=== PATIENT | male | born 1950 | race Caucasian/White ===

== ENCOUNTER 2021-04-04 07:20 | Inpatient (IN) ==
[2021-04-04] MEDS ORDERED: IOPAMIDOL 100 ML BOTTLE IV ONE ×2 (07:21→14:36)
[2021-04-04] MEDS ORDERED: 0.9 % SODIUM CHLORIDE 500 ML IV ONE (07:30)
[2021-04-04] MEDS ORDERED: DEXAMETHASONE 10 MG/ML VIAL IV ONE (07:30)
[2021-04-04] MEDS ORDERED: IPRATROPIUM/ALBUTEROL 3 ML AMPUL.NEB NEB ONE (07:30)
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
[2021-04-04 09:02] LABS: Basophils # (Auto) 0.02 K/mcL (0.00-0.30); Basophils % (Auto) 0.2 % (0.0-2.0); Eosinophils # (Auto) 0.03 K/mcL (0.00-0.70); Eosinophils % (Auto) 0.3 % (0.0-7.0); Lymphocytes # (Auto) 1.01 K/mcL (1.50-4.80); Lymphocytes % (Auto) 11.7 % (15.5-49.0); Mean Cell Volume 87.2 fL (80.0-100.0); Mean Corpuscular HGB Conc 33.3 g/dL (31.0-36.0); Mean Platelet Volume 9.5 fL (7.4-10.4); Monocytes # (Auto) 0.54 K/mcL (0.10-0.90); Monocytes % (Auto) 6.3 % (1.0-12.0); Neutrophils % (Auto) 81.5 % (38.0-78.0); Platelet Count 388 K/mcL (140-440); RBC 5.16 M/mcL (4.63-6.08); Red Cell Distribution Width 13.2 % (11.5-14.5); WBC 8.6 K/mcL (4.5-11.0)
[2021-04-04 09:08] LABS: ALT/SGPT 16 U/L (<40); AST/SGOT 22 U/L (<40); Albumin 3.3 gm/dL (3.2-5.2); Albumin/Globulin Ratio 0.9 (1.0-2.3); Alkaline Phosphatase 80 U/L (39-117); Bilirubin,Total 0.9 mg/dL (0.1-1.0); Blood Urea Nitrogen 13 mg/dL (8-23); Calcium 8.8 mg/dL (8.6-10.4); Carbon Dioxide 22 mmol/L (22-30); Chloride 97 mmol/L (96-108); Globulin 3.7 gm/dL (2.2-3.7); Glomerular Filtration Rate 76; Glucose 142 mg/dL (70-105)
[2021-04-04] MEDS ORDERED: POTASSIUM CHLORIDE 20 MEQ TABLET PO ONE (09:14)
[2021-04-04] MEDS ORDERED: MAGNESIUM OXIDE 400 MG TABLET PO ONE (09:15)
--- NOTE | 2021-04-04 09:43 | XRay Report ---
INDICATION: dyspnea TECHNIQUE: AP portable semiupright chest x-ray COMPARISON: Previous examination dated 04/01/2021 FINDINGS: Lungs:Bilateral pulmonary parenchymal infiltrates. Findings are consistent with covid pneumonia. There has been interval worsening since 04/01/2021 Heart, vascular:No significant cardiomegaly. Pulmonary vascularity is normal. No pulmonary edema or pulmonary congestion Mediastinum, jose david:No mediastinal widening. No hilar mass Pleura:No pleural fluid. No pleural-based mass or calcification Skeletal:Negative. IMPRESSION: 1. Pulmonary parenchymal infiltrates consistent with covid pneumonia 2. Interval worsening since 04/01/2021 Interpreted and Authenticated by: Sharath Lema 04/04/21
--- NOTE | 2021-04-04 10:12 | Cat Scan Report ---
INDICATION: covid, elevated dimer COMPARISON: Previous chest x-rays dated 04/04/2021, 04/01/2021 TECHNIQUE: Axial images obtained through the chest. 60ml Isovue 370 injected intravenously, and scanning was performed during pulmonary arterial phase. Sagittally and coronally reformatted images were obtained. MIP reformatted images. FINDINGS: Lungs:Bilateral predominantly groundglass pulmonary parenchymal infiltrates consistent with covid pneumonia. Mediastinum, vascular:Main pulmonary artery, right pulmonary artery, left pulmonary artery are negative. No intraluminal filling defects. No lobar, segmental, or subsegmental emboli. Thoracic aorta is negative. No aneurysmal dilatation No pathologic mediastinal or hilar adenopathy Heart:No cardiomegaly. No pericardial effusion. There is calcified coronary artery disease with plaque predominantly in the left anterior descending coronary artery No significant reflux of contrast material into the inferior vena cava or hepatic veins Pleura:No significant pleural effusion. No pleural mass or calcification Axilla, supraclavicular regions, chest wall:No pathologic axillary or supraclavicular adenopathy. Musculoskeletal:Negative thoracic spine. No compression fracture. No lytic lesion. No acute rib or sternal lesions. There are nonacute right third through fifth rib fractures Upper Abdomen:There is borderline splenomegaly. There is bilateral adrenal hyperplasia. There are calcified gallstones in the dependent portion of the gallbladder IMPRESSION: 1. Negative pulmonary CTA. No pulmonary embolism 2. Bilateral infiltrates consistent with covid pneumonia 3. Cholelithiasis 4. Borderline splenomegaly 5. Adrenal hyperplasia 6. Nonacute right rib fractures 7. Calcified coronary artery disease The exam was performed using radiation dose optimization techniques including, but not limited to, automated exposure control, adjustment of the mA and/or kV according to patient size and use of iterative reconstruction technique. Interpreted and Authenticated by: Sharath Lema 04/04/21
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
[2021-04-04] MEDS ORDERED: POTASSIUM CHLORIDE 20 MEQ in DEXTROSE 5% IN WATER 250 ML IV PRN (11:00)
[2021-04-04] MEDS ORDERED: DEXTROSE 50% 50 ML VIAL IV PRN (14:36)
[2021-04-04] MEDS ORDERED: IPRATROPIUM/ALBUTEROL 3 ML AMPUL.NEB NEB PRN (14:36)
[2021-04-04] MEDS ORDERED: guaiFENesin/DEXTROMETHORPHAN ORAL SOL PO PRN (14:36)
[2021-04-04] MEDS ORDERED: SENNOSIDES 1 TABLET PO PRN (14:36)
[2021-04-04] MEDS ORDERED: LACTULOSE 20 GM/30 ML ORAL.SOL PO PRN (14:36)
[2021-04-04] MEDS ORDERED: DEXTROSE 31 GM ORAL.SUSP PO PRN (14:36)
[2021-04-04] MEDS ORDERED: REMDESIVIR 200 MG in 0.9 % SODIUM CHLORIDE 250 ML IV ONE (15:00)
[2021-04-04] MEDS: INSULIN LISPRO 1 UNIT/0.01 ML UNIT SQ SCH ×3 (15:39→20:58)
[2021-04-04] MEDS: 0.9 % SODIUM CHLORIDE 10 ML SYRINGE IV SCH (15:41)
[2021-04-04] MEDS: GABAPENTIN 100 MG CAPSULE PO SCH ×2 (15:44→20:51)
[2021-04-04 15:59] LABS: INR 0.9 (0.9-1.1); Prothrombin Time 12.8 sec (11.9-14.5)
[2021-04-04 16:00] LABS: ALT/SGPT 17 U/L (<40); AST/SGOT 23 U/L (<40); Albumin 3.4 gm/dL (3.2-5.2); Albumin/Globulin Ratio 0.9 (1.0-2.3); Alkaline Phosphatase 81 U/L (39-117); Bilirubin,Total 0.7 mg/dL (0.1-1.0); Blood Urea Nitrogen 13 mg/dL (8-23); Carbon Dioxide 19 mmol/L (22-30); Chloride 97 mmol/L (96-108); Globulin 3.6 gm/dL (2.2-3.7); Glomerular Filtration Rate 76; Glucose 142 mg/dL (70-105); Lactate Dehydrogenase 295 U/L (135-225)
[2021-04-04 16:26] LABS: Estimated Average Glucose(eAG) 183 mg/dL
[2021-04-04] MEDS: ACETAMINOPHEN 325 MG TABLET PO PRN (20:49)
[2021-04-04] MEDS: DOCUSATE SODIUM 100 MG CAPSULE PO SCH (20:51)
[2021-04-04] MEDS ORDERED: INSULIN GLARGINE, HUMAN 1 UNIT/0.01 ML SQ ONE ×2 (21:00→21:01)
[2021-04-04] MEDS: ENOXAPARIN 40 MG/0.4 ML SYRINGE SQ SCH (21:04)
[2021-04-04] MEDS: INSULIN DEGLUDEC 100 UNIT/ML SC SCH (21:05)
[2021-04-04] MEDS: Budesonide-Formoterol [Symbicort] 160-4.5 mcg Inhaler INH SCH (21:05)
[2021-04-04] MEDS: OMEPRAZOLE 20 MG CAPSULE PO SCH (21:05)
[2021-04-04] MEDS: INSULIN SC SCH (21:05)
[2021-04-05] MEDS: 0.9 % SODIUM CHLORIDE 10 ML SYRINGE IV SCH ×3 (03:37→14:07)
[2021-04-05 06:58] LABS: Basophils # (Auto) 0.01 K/mcL (0.00-0.30); Basophils % (Auto) 0.2 % (0.0-2.0); Eosinophils # (Auto) 0.01 K/mcL (0.00-0.70); Eosinophils % (Auto) 0.2 % (0.0-7.0); Hematocrit 42.1 % (40.1-51.0); Hemoglobin 13.9 g/dL (13.7-17.5); Lymphocytes # (Auto) 0.93 K/mcL (1.50-4.80); Mean Cell Volume 88.1 fL (80.0-100.0); Mean Platelet Volume 10.3 fL (7.4-10.4); Monocytes # (Auto) 0.58 K/mcL (0.10-0.90); Monocytes % (Auto) 8.7 % (1.0-12.0); Neutrophils % (Auto) 76.9 % (38.0-78.0); Platelet Count 331 K/mcL (140-440); RBC 4.78 M/mcL (4.63-6.08); WBC 6.6 K/mcL (4.5-11.0)
[2021-04-05] MEDS: INSULIN LISPRO 1 UNIT/0.01 ML UNIT SQ SCH ×4 (06:59→21:24)
[2021-04-05] MEDS: ONDANSETRON 4 MG/2 ML VIAL IV PRN (06:59)
[2021-04-05 07:30] LABS: Phosphorous 2.4 mg/dL (2.5-4.5)
[2021-04-05 07:35] LABS: ALT/SGPT 12 U/L (<40); AST/SGOT 17 U/L (<40); Albumin 2.7 gm/dL (3.2-5.2); Albumin/Globulin Ratio 0.8 (1.0-2.3); Alkaline Phosphatase 65 U/L (39-117); Bilirubin,Total 0.8 mg/dL (0.1-1.0); Blood Urea Nitrogen 15 mg/dL (8-23); Calcium 8.7 mg/dL (8.6-10.4); Carbon Dioxide 21 mmol/L (22-30); Chloride 102 mmol/L (96-108); Globulin 3.5 gm/dL (2.2-3.7); Glomerular Filtration Rate 91; Glucose 127 mg/dL (70-105)
[2021-04-05] MEDS: OMEPRAZOLE 20 MG CAPSULE PO SCH ×2 (07:58→21:13)
[2021-04-05] MEDS: DOCUSATE SODIUM 100 MG CAPSULE PO SCH ×2 (07:58→21:13)
[2021-04-05] MEDS: GABAPENTIN 100 MG CAPSULE PO SCH ×3 (07:58→21:13)
[2021-04-05] MEDS: ENOXAPARIN 40 MG/0.4 ML SYRINGE SQ SCH ×2 (07:58→21:12)
[2021-04-05] MEDS: DEXAMETHASONE 4 MG TABLET PO SCH (07:58)
[2021-04-05] MEDS: LISINOPRIL 20 MG TABLET PO SCH (07:58)
[2021-04-05] MEDS: HYDROCHLOROTHIAZIDE 12.5 MG CAPSULE PO SCH (07:58)
--- NOTE | 2021-04-05 08:23 | XRay Report ---
INDICATION: covid pneumonia TECHNIQUE: AP portable upright chest x-ray COMPARISON: Previous chest CT scan dated 04/04/2021. Previous chest x-rays dated 04/04/2021, 04/01/2021. FINDINGS: Lungs:There are bilateral pulmonary parenchymal infiltrates. Appearance remains consistent with covid pneumonia. Infiltrates are improved since 04/04/2021. No new abnormality. Heart, vascular:No significant cardiomegaly. Pulmonary vascularity is normal. No pulmonary edema or pulmonary congestion Mediastinum, jose david:No mediastinal widening. No hilar mass Pleura:No pleural fluid. No pleural-based mass or calcification Skeletal:Negative. IMPRESSION: 1. Bilateral infiltrates remain consistent with covid pneumonia 2. Interval improvement since 04/04/2021 Interpreted and Authenticated by: Sharath Lema 04/05/21
[2021-04-05] MEDS ORDERED: LISINOPRIL/HCTZ 10/12.5MG TABLET PO SCH (09:00)
[2021-04-05] MEDS ORDERED: LISINOPRIL/HCTZ 20/12.5MG TABLET PO SCH (09:00)
--- NOTE | 2021-04-05 09:19 | Internal Med Progress Note ---
SUBJECTIVE Subjective Patient information: Note initiated : 04/05/21 at 9:15 am Service Date, if different from initiated Date: [] Patient: Rayray Dominguez a 70 y/o M admitted on 04/04/21 for COVID, SOB. Chief Complaint: [CoVID pneumonia] Interval history: History of present illness: Mr. Dominguez is a 70 year old M history of COPD, type 2 diabetes mellitus, essential hypertension's, presenting with 11-day history of shortness of breath, productive cough, fever and chills, general body weakness, general body aches. He is vaccinated against Covid pneum onia with the [employer]eb [employer] Jeb vaccine. He was in his usual state of health until 11 days ago when he had acute onset of shortness of breath, productive cough, fever and chills, general body weakness, and general body aches. He presented to our ED on April 01, 2021 and was being discharged home with dexamethasone but without oxygen therapy. He returned to our ED today due to worsening of his symptoms. His oxygen saturations were was down to the 60s on room air with rest of the vital signs within normal limits. Labs significant for lack of leukocytosis with WBC 8.6. D-dimer mildly elevated to 0.89. Serum lactic acid 1.4. Serum potassium 3.2. Procalcitonin mildly elevated to 0.31. Chest x-ray showing bilateral patchy infiltrates typical for Covid pneumonia. CT angiogram of the chest negative for any pulmonary embolism. 04/05: Afebrile overnight. Did not tolerate proning. Between BiPAP 12/8cmH2O FiO2 50% and high flow oxygen 60L/min FiO2 100%. Blood culture no growth to date. c/o SOB, improves relative to yesterday. c/o productive cough with clear sputum. c/o chest tightness. c/o fever and chills. Denies anxiety. So-so appetite. Denies general body weakness. Constitutional Vitals: Vital Signs Temp Pulse Resp BP Pulse Ox 36.4 C 66 25 H 130/75 99 04/05/21 08:01 04/05/21 08:01 04/05/21 08:01 04/05/21 08:01 04/05/21 08:01 Period Temp Pulse Resp BP Sys/Amin Pulse Ox Last 24 Hr 36.4 C-36.5 C 61-95 8-27 99-144/57-93 82-100 Intake and Output 04/04/21 04/05/21 04/05/21 21:59 05:59 13:59 Intake Total 450 Output Total 150 350 Balance 300 -350 Weight 99.79 kg Intake & Output: Intake & Output 04/04/21 04/05/21 04/05/21 21:59 05:59 13:59 Intake Total 450 Output Total 150 350 Balance 300 -350 Weight 99.79 kg Intake: IV 250 Veklury 200 mg In Sodium 250 Chloride 0.9% 250 ml @ 500 mls/ hr IV ONCE ONE Rx#:[id number] Oral 200 Output: Urine Catheter Amount 150 Void Amount 150 200 Other: Meal Dinner Percent of Meal Consumed 100% Feeding Ability Independent Urine Appearance Sediment Urine Color Dark Margarita Dark Margarita Urine Odor Foul General appearance: cooperative and no acute distress Head Head exam: Present atraumatic and normocephalic Eye Eye exam: Present EOMI and PERRL ENT ENT exam: Present mucous membranes moist, normal exam and normal external ear exam Additional comments: High flow oxygen in place Neck Neck exam: Present normal inspection; Absent lymphadenopathy, tenderness and thyromegaly Respiratory Respiratory exam: Present rhonchi; Absent accessory muscle use, respiratory distress and wheezes Cardiovascular Cardiovascular exam: Present normal rate and rhythm; Absent JVD GI/Abdominal GI/Abdominal exam: Present normal bowel sounds and soft; Absent organomegaly and tenderness Rectal Rectal exam: Present deferred Extremities Exam Extremities exam: Present full ROM, normal capillary refill and normal inspection; Absent tenderness Neurological Exam Neurological exam: Present alert, CN II-XII intact and oriented X3; Absent motor sensory deficit Psychiatric Psychiatric exam: Present normal affect and normal mood; Absent anxious and depressed Skin Skin exam: Present dry and intact OBJ DATA Labs CBC & Chem 7: 04/05/21 05:32 04/05/21 05:31 Labs: Abnormal Lab Results 04/05/21 04/05/21 04/05/21 05:32 05:32 05:31 Neut % (Auto) Lymph % (Auto) 14.0 L Lymph # (Auto) 0.93 L Fibrinogen D-Dimer Potassium Carbon Dioxide 21 L Anion Gap Glucose 127 H Hemoglobin A1c Phosphorus 2.4 L Ferritin Lactate Dehydrogenase C-Reactive Protein Albumin 2.7 L Albumin/Globulin Ratio 0.8 L Procalcitonin 04/04/21 04/04/21 04/04/21 07:53 07:53 07:53 Neut % (Auto) Lymph % (Auto) Lymph # (Auto) Fibrinogen 827 H D-Dimer Potassium 3.2 L Carbon Dioxide 19 L Anion Gap 21.0 H Glucose 142 H Hemoglobin A1c 8.0 H Phosphorus Ferritin 463.0 H Lactate Dehydrogenase 295 H C-Reactive Protein 14.80 H Albumin Albumin/Globulin Ratio 0.9 L Procalcitonin 0.31 H 04/04/21 04/04/21 04/04/21 07:53 07:53 07:53 Neut % (Auto) 81.5 H Lymph % (Auto) 11.7 L Lymph # (Auto) 1.01 L Fibrinogen D-Dimer 0.89 H Potassium 3.2 L Carbon Dioxide Anion Gap 17.0 H Glucose 142 H Hemoglobin A1c Phosphorus Ferritin Lactate Dehydrogenase C-Reactive Protein Albumin Albumin/Globulin Ratio 0.9 L Procalcitonin Meds: Medications Acetaminophen (Acetaminophen 325 Mg Tablet) 650 mg PO Q6HP PRN; Protocol PRN Reason: Per Pain Protocol/Fever > 101 Last Admin: 04/04/21 20:49 Dose: 650 mg Documented by: Albuterol/Ipratropium (Ipratropium/Albuterol 3 Ml Ampul.Neb) 3 ml NEB Q4HRT PRN PRN Reason: Wheezing Dexamethasone (Dexamethasone 4 Mg Tablet) 6 mg PO DAILY [facility] Last Admin: 04/05/21 07:58 Dose: 6 mg Documented by: Dextrose (Dextrose 50% 50 Ml Vial) 0 ml IV UD PRN PRN Reason: Hypoglycemia Diagnostic Test (Pha) (Accu-Chek 1 Each Strip) 1 each FS ACHS [facility] Last Admin: 04/05/21 06:59 Dose: 1 each Documented by: Docusate Sodium (Docusate Sodium 100 Mg Capsule) 100 mg PO BID [facility] Last Admin: 04/05/21 07:58 Dose: 100 mg Documented by: Enoxaparin Sodium (Enoxaparin 40 Mg/0.4 Ml Syringe) 40 mg SQ BID [facility] Last Admin: 04/05/21 07:58 Dose: 40 mg Documented by: Gabapentin (Gabapentin 100 Mg Capsule) 100 mg PO TID [facility] Last Admin: 04/05/21 07:58 Dose: 100 mg Documented by: Glucose (Dextrose 31 Gm Oral.Susp) 15 gm PO PRN PRN PRN Reason: Hypoglycemia Guaifenesin (Guaifenesin/Dextromethorphan Oral Rosa) 10 ml PO Q4HP PRN PRN Reason: Cough Hydrochlorothiazide (Hydrochlorothiazide 12.5 Mg Capsule) 12.5 mg PO DAILY [facility] Last Admin: 04/05/21 07:58 Dose: 12.5 mg Documented by: Potassium Chloride 20 meq/ (Dextrose) 260 mls @ 130 mls/hr IV UD PRN PRN Reason: hypokalemia REMDESIVIR 100 mg/ Sodium (Chloride) 250 mls @ 500 mls/hr IV Q24H [facility] Stop: 04/08/21 11:01 Insulin Human Lispro (Insulin Lispro 1 Unit/0.01 Ml Unit) 0 unit SQ ACHS [facility]; Protocol Last Admin: 04/05/21 06:59 Dose: Not Given Documented by: Lactulose (Lactulose 20 Gm/30 Ml Oral.Rosa) 10 gm PO DAILYP PRN PRN Reason: Constipation Lisinopril (Lisinopril 20 Mg Tablet) 20 mg PO DAILY [facility] Last Admin: 04/05/21 07:58 Dose: 20 mg Documented by: Omeprazole (Omeprazole 20 Mg Capsule) 20 mg PO BID [facility] Last Admin: 04/05/21 07:58 Dose: 20 mg Documented by: Ondansetron HCl (Ondansetron 4 Mg/2 Ml Vial) 4 mg IV Q4HP PRN; Protocol PRN Reason: Nausea And Vomiting Last Admin: 04/05/21 06:59 Dose: 4 mg Documented by: Budesonide- Formoterol [ Symbicort] 160-4.5 Mcg Inhaler 2 dose INH BID [facility] Last Admin: 04/04/21 21:05 Dose: Not Given Documented by: Fluticasone- Umeclidin-Vilanter [ Trelegy Ellipta] Inhaler 1 dose INH QDAY [facility] Insulin Degludec 100 (Unit/Ml Insulin Pen) 50 dose SC HS [facility] Last Admin: 04/04/21 21:05 Dose: Not Given Documented by: Umeclidinium- Vilanterol [Anoro Ellipta] 62.5-25 Mcg Inhaler 1 dose INH DAILY [facility] Pneumococcal Polyvalent Vaccine (Pneumococcal 23-Xiomy P-Sac Vac 0.5 Ml Syringe) 0.5 ml IM .ONCE ONE Stop: 04/06/21 10:01 Senna (Sennosides 1 Tablet) 2 tab PO HSP PRN PRN Reason: Constipation Sodium Chloride (0.9 % Sodium Chloride 10 Ml Syringe) 10 ml IV Q8 [facility] Last Admin: 04/05/21 06:05 Dose: 10 ml Documented by: A/P Assessment and plan (1) Pneumonia due to 2019 novel coronavirus: Status: Acute (2) Acute hypoxemic respiratory failure due to COVID-19: Status: Acute (3) Diabetes mellitus, type II: Status: Chronic Qualifiers: Diabetes mellitus complication status: with unspecified complications Diabetes mellitus shelter insulin use: 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 Covid pneumonia with associated acute respiratory failure with hypoxia: Stays in inpatient PCU with telemetry Isolation protocol: Airborne and contact Supplemental oxygen therapy titrate to achieve SPO2 above or equal to 88%, currently between BiPAP 12/8cmH2O FiO2 50% and high flow oxygen 60L/min FiO2 100% Serial lactic acid Inflammatory markers Blood culture, no growth to date CBC with auto differential in the morning to trend WBC Remdesivir Dexamethasone Lovenox Tylenol as needed fever Robitussin DM as needed cough DuoNeb nebulizer as needed wheezing Prone 16 hours/day as tolerated Incentive spirometry Chest x-ray daily #2 history of COPD: Does not appear to be in exacerbation Continue home regiment of inhalers DuoNeb nebulizer as needed wheezing Supplemental oxygen therapy titrate to achieve SPO2 above or equal to 88%, currently between BiPAP 12/8cmH2O FiO2 50% and high flow oxygen 60L/min FiO2 100% #3 type 2 diabetes mellitus: Hemoglobin A1c Home Metformin Continue long-acting insulin 50 units at bedtime as per home regiment Low-dose correctional scale insulin AC at bedtime Accu-Chek AC at bedtime Hypoglycemia protocol Diabetic diet 4. History of essential hypertension's: Currently normotensive Continue home regimen of oral antihypertensives 5. Morbid obesity: Counseled patient on lifestyle modifications including regular exercise and healthy diet in order to lose weight 6. History of GERD: Continue oral PPI from home regiment GI prophylaxis: Continue oral PPI from home regiment DVT prophylaxis: Lovenox CODE STATUS: Full code Prognosis: Guarded Dispositions: Inpatient PCU with telemetry Time Spent With Patient Time: Total time spent is greater than 50% in coordination of care (as documented) at patient's floor/unit and/or counseling patient: QUALITY VTE Deep Vein Thrombosis/Pulmonary Embolism Present on Admission: No
[2021-04-05] MEDS: Budesonide-Formoterol [Symbicort] 160-4.5 mcg Inhaler INH SCH ×2 (09:37→21:28)
[2021-04-05] MEDS: Umeclidinium-Vilanterol [Anoro Ellipta] 62.5-25 mcg Inhaler INH SCH (09:37)
[2021-04-05] MEDS: Fluticasone-Umeclidin-Vilanter [Trelegy Ellipta] Inhaler INH SCH (10:24)
[2021-04-05] MEDS: REMDESIVIR 100 MG in 0.9 % SODIUM CHLORIDE 250 ML IV SCH (10:24)
[2021-04-05] MEDS: INSULIN DEGLUDEC 100 UNIT/ML SC SCH (21:12)
[2021-04-05] MEDS: INSULIN SC SCH (21:12)
[2021-04-06] MEDS: 0.9 % SODIUM CHLORIDE 10 ML SYRINGE IV SCH ×4 (00:05→21:32)
[2021-04-06] MEDS: ACETAMINOPHEN 325 MG TABLET PO PRN (00:09)
[2021-04-06 07:28] LABS: Basophils # (Auto) 0.01 K/mcL (0.00-0.30); Basophils % (Auto) 0.1 % (0.0-2.0); Eosinophils # (Auto) 0.05 K/mcL (0.00-0.70); Eosinophils % (Auto) 0.6 % (0.0-7.0); Hematocrit 41.5 % (40.1-51.0); Hemoglobin 13.9 g/dL (13.7-17.5); Lymphocytes # (Auto) 1.03 K/mcL (1.50-4.80); Lymphocytes % (Auto) 12.6 % (15.5-49.0); Mean Cell Volume 88.9 fL (80.0-100.0); Mean Corpuscular HGB Conc 33.5 g/dL (31.0-36.0); Mean Platelet Volume 9.2 fL (7.4-10.4); Monocytes # (Auto) 0.58 K/mcL (0.10-0.90); Monocytes % (Auto) 7.1 % (1.0-12.0); Neutrophils % (Auto) 79.6 % (38.0-78.0); Platelet Count 409 K/mcL (140-440); RBC 4.67 M/mcL (4.63-6.08); WBC 8.2 K/mcL (4.5-11.0)
[2021-04-06] MEDS: INSULIN LISPRO 1 UNIT/0.01 ML UNIT SQ SCH ×4 (07:29→21:25)
[2021-04-06 07:46] LABS: Phosphorous 3.3 mg/dL (2.5-4.5)
[2021-04-06 07:48] LABS: ALT/SGPT 12 U/L (<40); AST/SGOT 14 U/L (<40); Albumin 2.6 gm/dL (3.2-5.2); Albumin/Globulin Ratio 0.8 (1.0-2.3); Alkaline Phosphatase 63 U/L (39-117); Bilirubin,Total 0.7 mg/dL (0.1-1.0); Blood Urea Nitrogen 19 mg/dL (8-23); Calcium 8.8 mg/dL (8.6-10.4); Carbon Dioxide 23 mmol/L (22-30); Chloride 103 mmol/L (96-108); Globulin 3.4 gm/dL (2.2-3.7); Glomerular Filtration Rate 91; Glucose 110 mg/dL (70-105)
[2021-04-06] MEDS: Budesonide-Formoterol [Symbicort] 160-4.5 mcg Inhaler INH SCH ×2 (07:53→21:33)
[2021-04-06] MEDS: Umeclidinium-Vilanterol [Anoro Ellipta] 62.5-25 mcg Inhaler INH SCH (07:53)
--- NOTE | 2021-04-06 07:54 | XRay Report ---
HISTORY: Follow-up COVID pneumonia FINDINGS: A patchy distribution of alveolar infiltrates are present in both lungs. The infiltrate in the central portion of the left lung has somewhat of a streaky distribution. These have remained stable since the prior exam done on 05/06/21. There is no pneumothorax or pleural effusion. The heart size is normal. IMPRESSION: Stable moderate bilateral pneumonia Interpreted and Authenticated by: Willie Bowden 04/06/21
[2021-04-06] MEDS: ENOXAPARIN 40 MG/0.4 ML SYRINGE SQ SCH ×2 (08:24→21:11)
[2021-04-06] MEDS: ONDANSETRON 4 MG/2 ML VIAL IV PRN (08:24)
[2021-04-06] MEDS: LISINOPRIL 20 MG TABLET PO SCH (08:25)
[2021-04-06] MEDS: OMEPRAZOLE 20 MG CAPSULE PO SCH ×2 (08:25→21:13)
[2021-04-06] MEDS: DOCUSATE SODIUM 100 MG CAPSULE PO SCH ×2 (08:25→21:12)
[2021-04-06] MEDS: DEXAMETHASONE 4 MG TABLET PO SCH (08:25)
[2021-04-06] MEDS: Fluticasone-Umeclidin-Vilanter [Trelegy Ellipta] Inhaler INH SCH (08:25)
[2021-04-06] MEDS: HYDROCHLOROTHIAZIDE 12.5 MG CAPSULE PO SCH (08:25)
[2021-04-06] MEDS: GABAPENTIN 100 MG CAPSULE PO SCH ×3 (08:25→21:12)
--- NOTE | 2021-04-06 08:27 | Internal Med Progress Note ---
SUBJECTIVE Subjective Patient information: Note initiated : 04/06/21 at 8:24 am Service Date, if different from initiated Date: [] Patient: Rayray Dominguez a 70 y/o M admitted on 04/04/21 for COVID, SOB. Chief Complaint: [CoVID pneumonia] Interval history: History of present illness: Mr. Dominguez is a 70 year old M history of COPD, type 2 diabetes mellitus, essential hypertension's, presenting with 11-day history of shortness of breath, productive cough, fever and chills, general body weakness, general body aches. He is vaccinated against Covid pneum onia with the [employer]eb [employer] Jeb vaccine. He was in his usual state of health until 11 days ago when he had acute onset of shortness of breath, productive cough, fever and chills, general body weakness, and general body aches. He presented to our ED on April 01, 2021 and was being discharged home with dexamethasone but without oxygen therapy. He returned to our ED today due to worsening of his symptoms. His oxygen saturations were was down to the 60s on room air with rest of the vital signs within normal limits. Labs significant for lack of leukocytosis with WBC 8.6. D-dimer mildly elevated to 0.89. Serum lactic acid 1.4. Serum potassium 3.2. Procalcitonin mildly elevated to 0.31. Chest x-ray showing bilateral patchy infiltrates typical for Covid pneumonia. CT angiogram of the chest negative for any pulmonary embolism. 04/05: Afebrile overnight. Did not tolerate proning. Between BiPAP 12/8cmH2O FiO2 50% and high flow oxygen 60L/min FiO2 100%. Blood culture no growth to date. c/o SOB, improves relative to yesterday. c/o productive cough with clear sputum. c/o chest tightness. c/o fever and chills. Denies anxiety. So-so appetite. Denies general body weakness. 04/06: Afebrile overnight. Did not tolerate proning. Between on high flow oxygen 55L/min FiO2 90%. Blood culture no growth to date. c/o SOB, improves relative to yesterday. c/o productive cough with clear sputum. c/o chest tightness. Denies fever and chills. Denies anxiety. Good appetite. Denies general body weakness. Constitutional Vitals: Vital Signs Temp Pulse Resp BP Pulse Ox 36.8 C 75 19 123/77 90 04/06/21 00:01 04/06/21 06:00 04/06/21 06:00 04/06/21 05:59 04/06/21 07:17 Period Temp Pulse Resp BP Sys/Amin Pulse Ox Last 24 Hr 36.1 C-36.8 C 57-92 12-26 105-127/53-87 90-99 Intake and Output 04/05/21 04/06/21 04/06/21 21:59 05:59 13:59 Output Total 650 Balance -650 Weight 98.611 kg Intake & Output: Intake & Output 04/05/21 04/06/21 04/06/21 21:59 05:59 13:59 Output Total 650 Balance -650 Weight 98.611 kg Output: Void Amount 650 Other: Meal Dinner Percent of Meal Consumed 100% Feeding Ability Independent Urine Appearance Clear Urine Color Light Margarita Urine Odor Normal General appearance: cooperative and no acute distress Head Head exam: Present atraumatic and normocephalic Eye Eye exam: Present EOMI and PERRL ENT ENT exam: Present mucous membranes moist, normal exam and normal external ear exam Additional comments: High flow oxygen in place Neck Neck exam: Present normal inspection; Absent lymphadenopathy, tenderness and thyromegaly Respiratory Respiratory exam: Absent accessory muscle use, respiratory distress and wheezes Cardiovascular Cardiovascular exam: Present normal rate and rhythm; Absent JVD GI/Abdominal GI/Abdominal exam: Present normal bowel sounds and soft; Absent organomegaly and tenderness Rectal Rectal exam: Present deferred Extremities Exam Extremities exam: Present full ROM, normal capillary refill and normal inspection; Absent tenderness Neurological Exam Neurological exam: Present alert, CN II-XII intact and oriented X3; Absent motor sensory deficit Psychiatric Psychiatric exam: Present normal affect and normal mood; Absent anxious and depressed Skin Skin exam: Present dry and intact OBJ DATA Labs CBC & Chem 7: 04/06/21 05:51 04/06/21 05:50 Labs: Abnormal Lab Results 04/06/21 04/06/21 04/05/21 05:51 05:50 05:32 Neut % (Auto) 79.6 H Lymph % (Auto) 12.6 L Lymph # (Auto) 1.03 L Fibrinogen D-Dimer Potassium Carbon Dioxide Anion Gap Glucose 110 H Hemoglobin A1c Phosphorus 2.4 L Ferritin Lactate Dehydrogenase C-Reactive Protein Albumin 2.6 L Albumin/Globulin Ratio 0.8 L Procalcitonin 04/05/21 04/05/21 04/04/21 05:32 05:31 07:53 Neut % (Auto) Lymph % (Auto) 14.0 L Lymph # (Auto) 0.93 L Fibrinogen D-Dimer Potassium 3.2 L Carbon Dioxide 21 L 19 L Anion Gap 21.0 H Glucose 127 H 142 H Hemoglobin A1c 8.0 H Phosphorus Ferritin 463.0 H Lactate Dehydrogenase 295 H C-Reactive Protein 14.80 H Albumin 2.7 L Albumin/Globulin Ratio 0.8 L 0.9 L Procalcitonin 04/04/21 04/04/21 04/04/21 07:53 07:53 07:53 Neut % (Auto) Lymph % (Auto) Lymph # (Auto) Fibrinogen 827 H D-Dimer Potassium 3.2 L Carbon Dioxide Anion Gap 17.0 H Glucose 142 H Hemoglobin A1c Phosphorus Ferritin Lactate Dehydrogenase C-Reactive Protein Albumin Albumin/Globulin Ratio 0.9 L Procalcitonin 0.31 H 04/04/21 04/04/21 07:53 07:53 Neut % (Auto) 81.5 H Lymph % (Auto) 11.7 L Lymph # (Auto) 1.01 L Fibrinogen D-Dimer 0.89 H Potassium Carbon Dioxide Anion Gap Glucose Hemoglobin A1c Phosphorus Ferritin Lactate Dehydrogenase C-Reactive Protein Albumin Albumin/Globulin Ratio Procalcitonin Meds: Medications Acetaminophen (Acetaminophen 325 Mg Tablet) 650 mg PO Q6HP PRN; Protocol PRN Reason: Per Pain Protocol/Fever > 101 Last Admin: 04/06/21 00:09 Dose: 650 mg Documented by: Albuterol/Ipratropium (Ipratropium/Albuterol 3 Ml Ampul.Neb) 3 ml NEB Q4HRT PRN PRN Reason: Wheezing Dexamethasone (Dexamethasone 4 Mg Tablet) 6 mg PO DAILY [facility] Last Admin: 04/05/21 07:58 Dose: 6 mg Documented by: Dextrose (Dextrose 50% 50 Ml Vial) 0 ml IV UD PRN PRN Reason: Hypoglycemia Diagnostic Test (Pha) (Accu-Chek 1 Each Strip) 1 each FS ACHS [facility] Last Admin: 04/06/21 07:29 Dose: 1 each Documented by: Docusate Sodium (Docusate Sodium 100 Mg Capsule) 100 mg PO BID [facility] Last Admin: 04/05/21 21:13 Dose: 100 mg Documented by: Enoxaparin Sodium (Enoxaparin 40 Mg/0.4 Ml Syringe) 40 mg SQ BID [facility] Last Admin: 04/05/21 21:12 Dose: 40 mg Documented by: Gabapentin (Gabapentin 100 Mg Capsule) 100 mg PO TID [facility] Last Admin: 04/05/21 21:13 Dose: 100 mg Documented by: Glucose (Dextrose 31 Gm Oral.Susp) 15 gm PO PRN PRN PRN Reason: Hypoglycemia Guaifenesin (Guaifenesin/Dextromethorphan Oral Rosa) 10 ml PO Q4HP PRN PRN Reason: Cough Hydrochlorothiazide (Hydrochlorothiazide 12.5 Mg Capsule) 12.5 mg PO DAILY [facility] Last Admin: 04/05/21 07:58 Dose: 12.5 mg Documented by: Potassium Chloride 20 meq/ (Dextrose) 260 mls @ 130 mls/hr IV UD PRN PRN Reason: hypokalemia REMDESIVIR 100 mg/ Sodium (Chloride) 250 mls @ 500 mls/hr IV Q24H [facility] Stop: 04/08/21 11:01 Last Infusion: 04/05/21 10:57 Dose: Infused Documented by: Insulin Human Lispro (Insulin Lispro 1 Unit/0.01 Ml Unit) 0 unit SQ ACHS [facility]; Protocol Last Admin: 04/06/21 07:29 Dose: Not Given Documented by: Lactulose (Lactulose 20 Gm/30 Ml Oral.Rosa) 10 gm PO DAILYP PRN PRN Reason: Constipation Lisinopril (Lisinopril 20 Mg Tablet) 20 mg PO DAILY [facility] Last Admin: 04/05/21 07:58 Dose: 20 mg Documented by: Omeprazole (Omeprazole 20 Mg Capsule) 20 mg PO BID [facility] Last Admin: 04/05/21 21:13 Dose: 20 mg Documented by: Ondansetron HCl (Ondansetron 4 Mg/2 Ml Vial) 4 mg IV Q4HP PRN; Protocol PRN Reason: Nausea And Vomiting Last Admin: 04/05/21 06:59 Dose: 4 mg Documented by: Budesonide- Formoterol [ Symbicort] 160-4.5 Mcg Inhaler 2 dose INH BID [facility] Last Admin: 04/06/21 07:53 Dose: Not Given Documented by: Fluticasone- Umeclidin-Vilanter [ Trelegy Ellipta] Inhaler 1 dose INH QDAY [facility] Last Admin: 04/05/21 10:24 Dose: 1 dose Documented by: Insulin Degludec 100 (Unit/Ml Insulin Pen) 50 dose SC HS [facility] Last Admin: 04/05/21 21:12 Dose: 50 dose Documented by: Umeclidinium- Vilanterol [Anoro Ellipta] 62.5-25 Mcg Inhaler 1 dose INH DAILY [facility] Last Admin: 04/06/21 07:53 Dose: Not Given Documented by: Pneumococcal Polyvalent Vaccine (Pneumococcal 23-Xiomy P-Sac Vac 0.5 Ml Syringe) 0.5 ml IM .ONCE ONE Stop: 04/06/21 10:01 Senna (Sennosides 1 Tablet) 2 tab PO HSP PRN PRN Reason: Constipation Sodium Chloride (0.9 % Sodium Chloride 10 Ml Syringe) 10 ml IV Q8 [facility] Last Admin: 04/06/21 05:59 Dose: 10 ml Documented by: A/P Assessment and plan (1) Pneumonia due to 2019 novel coronavirus: Status: Acute (2) Acute hypoxemic respiratory failure due to COVID-19: Status: Acute (3) Diabetes mellitus, type II: Status: Chronic Qualifiers: Diabetes mellitus complication status: with unspecified complications 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 Covid pneumonia with associated acute respiratory failure with hypoxia: Stays in inpatient PCU with telemetry Isolation protocol: Airborne and contact Supplemental oxygen therapy titrate to achieve SPO2 above or equal to 88%, currently on high flow oxygen 55L/min FiO2 90% Serial lactic acid Inflammatory markers Blood culture, no growth to date CBC with auto differential in the morning to trend WBC Remdesivir Dexamethasone Lovenox Tylenol as needed fever Robitussin DM as needed cough DuoNeb nebulizer as needed wheezing Prone 16 hours/day as tolerated-->patient does not really tolerate it due to back pain Incentive spirometry Chest x-ray daily #2 history of COPD: Does not appear to be in exacerbation Continue home regiment of inhalers DuoNeb nebulizer as needed wheezing Supplemental oxygen therapy titrate to achieve SPO2 above or equal to 88%, currently on high flow oxygen 55L/min FiO2 90% #3 type 2 diabetes mellitus: Hemoglobin A1c Home Metformin Continue long-acting insulin 50 units at bedtime as per home regiment Low-dose correctional scale insulin AC at bedtime Accu-Chek AC at bedtime Hypoglycemia protocol Diabetic diet 4. History of essential hypertension's: Currently normotensive Continue home regimen of oral antihypertensives 5. Morbid obesity: Counseled patient on lifestyle modifications including regular exercise and healthy diet in order to lose weight 6. History of GERD: Continue oral PPI from home regiment GI prophylaxis: Continue oral PPI from home regiment DVT prophylaxis: Lovenox CODE STATUS: Full code Prognosis: Guarded Dispositions: Inpatient PCU with telemetry Time Spent With Patient Time: Total time spent is greater than 50% in coordination of care (as [facility] [place]) at patient's floor/unit and/or counseling patient: QUALITY VTE Deep Vein Thrombosis/Pulmonary Embolism Present on Admission: No
--- NOTE | 2021-04-06 09:01 | EKG ---
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 Measurements Intervals [place] Rate: 110 P: 35 MO: 148 QRS: -58 QRSD: 92 T: 45 QT: 380 QTc: 515 Interpretive Statements SINUS TACHYCARDIA ATRIAL PREMATURE COMPLEX VENTRICULAR PREMATURE COMPLEX LEFT ANTERIOR FASCICULAR BLOCK Electronically Signed On 04-06-2021 8:58:34 PDT by Sharath Bowden M.D. /[email or web address]/[email or web address]/[id number]
[2021-04-06] MEDS: REMDESIVIR 100 MG in 0.9 % SODIUM CHLORIDE 250 ML IV SCH (10:25)
[2021-04-06] MEDS: MECLIZINE 25 MG TABLET PO PRN (16:30)
[2021-04-06] MEDS: INSULIN DEGLUDEC 100 UNIT/ML SC SCH (21:12)
[2021-04-06] MEDS: INSULIN SC SCH (21:12)
[2021-04-07] MEDS: MECLIZINE 25 MG TABLET PO PRN (02:19)
[2021-04-07] MEDS: 0.9 % SODIUM CHLORIDE 10 ML SYRINGE IV SCH ×3 (05:29→21:21)
[2021-04-07] MEDS: ONDANSETRON 4 MG/2 ML VIAL IV PRN (05:32)
[2021-04-07] MEDS: ACETAMINOPHEN 325 MG TABLET PO PRN ×2 (07:11→22:12)
[2021-04-07] MEDS: INSULIN LISPRO 1 UNIT/0.01 ML UNIT SQ SCH ×4 (07:26→21:12)
[2021-04-07 07:41] LABS: Basophils # (Auto) 0.02 K/mcL (0.00-0.30); Basophils % (Auto) 0.2 % (0.0-2.0); Eosinophils # (Auto) 0.17 K/mcL (0.00-0.70); Eosinophils % (Auto) 1.6 % (0.0-7.0); Hematocrit 41.5 % (40.1-51.0); Hemoglobin 13.9 g/dL (13.7-17.5); Lymphocytes # (Auto) 0.93 K/mcL (1.50-4.80); Lymphocytes % (Auto) 8.9 % (15.5-49.0); Mean Cell Volume 87.7 fL (80.0-100.0); Mean Corpuscular HGB Conc 33.5 g/dL (31.0-36.0); Monocytes # (Auto) 0.91 K/mcL (0.10-0.90); Monocytes % (Auto) 8.7 % (1.0-12.0); Neutrophils % (Auto) 80.6 % (38.0-78.0); Platelet Count 478 K/mcL (140-440); RBC 4.73 M/mcL (4.63-6.08); Red Cell Distribution Width 12.6 % (11.5-14.5); WBC 10.5 K/mcL (4.5-11.0)
[2021-04-07 08:27] LABS: Phosphorous 3.3 mg/dL (2.5-4.5)
[2021-04-07 08:31] LABS: ALT/SGPT 13 U/L (<40); AST/SGOT 14 U/L (<40); Albumin 2.7 gm/dL (3.2-5.2); Albumin/Globulin Ratio 0.8 (1.0-2.3); Alkaline Phosphatase 65 U/L (39-117); Bilirubin,Total 0.8 mg/dL (0.1-1.0); Blood Urea Nitrogen 16 mg/dL (8-23); Calcium 9.2 mg/dL (8.6-10.4); Carbon Dioxide 26 mmol/L (22-30); Chloride 101 mmol/L (96-108); Globulin 3.5 gm/dL (2.2-3.7); Glomerular Filtration Rate 91; Glucose 95 mg/dL (70-105)
--- NOTE | 2021-04-07 08:32 | XRay Report ---
HISTORY: Follow-up Covid Pneumonia, short of breath FINDINGS: Moderate diffuse infiltrates are present in both lungs. This has a patchy distribution. The consolidation located laterally in the left upper lobe has become worse since 04/06/2021 and 04/05/2021. The right-sided pneumonia has remained relatively stable. The heart size is normal. There is no pleural effusion or pneumothorax. IMPRESSION: Moderate bilateral pneumonia, becoming worse in the left upper lobe Interpreted and Authenticated by: Willie Bowden 04/07/21
--- NOTE | 2021-04-07 09:26 | Internal Med Progress Note ---
SUBJECTIVE Subjective Patient information: Note initiated : 04/07/21 at 9:24 am Service Date, if different from initiated Date: [] Patient: Rayray Dominguez a 70 y/o M admitted on 04/04/21 for COVID, SOB. Chief Complaint: [CoVID pneumonia] Interval history: History of present illness: Mr. Dominguez is a 70 year old M history of COPD, type 2 diabetes mellitus, essential hypertension's, presenting with 11-day history of shortness of breath, productive cough, fever and chills, general body weakness, general body aches. He is vaccinated against Covid pneum onia with the [employer] vaccine. He was in his usual state of health until 11 days ago when he had acute onset of shortness of breath, productive cough, fever and chills, general body weakness, and general body aches. He presented to our ED on April 01, 2021 and was being discharged home with dexamethasone but without oxygen therapy. He returned to our ED today due to worsening of his symptoms. His oxygen saturations were was down to the 60s on room air with rest of the vital signs within normal limits. Labs significant for lack of leukocytosis with WBC 8.6. D-dimer mildly elevated to 0.89. Serum lactic acid 1.4. Serum potassium 3.2. Procalcitonin mildly elevated to 0.31. Chest x-ray showing bilateral patchy infiltrates typical for Covid pneumonia. CT angiogram of the chest negative for any pulmonary embolism. 04/05: Afebrile overnight. Did not tolerate proning. Between BiPAP 12/8cmH2O FiO2 50% and high flow oxygen 60L/min FiO2 100%. Blood culture no growth to date. c/o SOB, improves relative to yesterday. c/o productive cough with clear sputum. c/o chest tightness. c/o fever and chills. Denies anxiety. So-so appetite. Denies general body weakness. 04/06: Afebrile overnight. Did not tolerate proning. Between on high flow oxygen 55L/min FiO2 90%. Blood culture no growth to date. c/o SOB, improves relative to yesterday. c/o productive cough with clear sputum. c/o chest tightness. Denies fever and chills. Denies anxiety. Good appetite. Denies general body weakness. 04/07: Afebrile overnight. Did not tolerate proning. Between on high flow oxygen 60L/ min FiO2 100%. Blood culture no growth to date. c/o SOB. c/o productive cough with clear sputum. c/o respiratory wheezing. c/o chest tightness. Denies fever and chills. Denies anxiety. Good appetite. Denies general body weakness. Constitutional Vitals: Vital Signs Temp Pulse Resp BP Pulse Ox 36.3 C 70 14 103/61 95 04/07/21 08:01 04/07/21 06:01 04/07/21 08:01 04/07/21 08:01 04/07/21 08:01 Period Temp Pulse Resp BP Sys/Amin Pulse Ox Last 24 Hr 36.3 C-37.1 C 27-228 14-28 93-137/50-74 85-100 Intake and Output 04/06/21 04/07/21 04/07/21 21:59 05:59 13:59 Intake Total 340 Output Total 525 200 300 Balance -185 -200 -300 Weight 98.611 kg Intake & Output: Intake & Output 04/06/21 04/07/21 04/07/21 21:59 05:59 13:59 Intake Total 340 Output Total 525 200 300 Balance -185 -200 -300 Weight 98.611 kg Intake: Oral 340 Output: Void Amount 525 200 300 Other: Percent of Meal Consumed 100% Feeding Ability Independent Urine Appearance Clear Clear Clear Urine Color Straw Straw Dark Yellow Urine Odor Normal General appearance: cooperative and mild distress Head Head exam: Present atraumatic and normocephalic Eye Eye exam: Present EOMI and PERRL ENT ENT exam: Present mucous membranes moist, normal exam and normal external ear exam Additional comments: High flow oxygen in place Neck Neck exam: Present normal inspection; Absent lymphadenopathy, tenderness and thy romegaly Respiratory Respiratory exam: Absent accessory muscle use, respiratory distress and wheezes Cardiovascular Cardiovascular exam: Present normal rate and rhythm; Absent JVD GI/Abdominal GI/Abdominal exam: Present normal bowel sounds and soft; Absent organomegaly and tenderness Rectal Rectal exam: Present deferred Extremities Exam Extremities exam: Present full ROM, normal capillary refill and normal inspection; Absent tenderness Neurological Exam Neurological exam: Present alert, CN II-XII intact and oriented X3; Absent motor sensory deficit Psychiatric Psychiatric exam: Present normal affect and normal mood; Absent anxious and depressed Skin Skin exam: Present dry and intact OBJ DATA Labs CBC & Chem 7: 04/07/21 05:44 04/07/21 05:44 Labs: Abnormal Lab Results 04/07/21 04/07/21 04/06/21 05:44 05:44 05:51 Plt Count 478 H Neut % (Auto) 80.6 H 79.6 H Lymph % (Auto) 8.9 L 12.6 L Lymph # (Auto) 0.93 L 1.03 L [place] # (Auto) 0.91 H Absolute Neutrophils 8.44 H Fibrinogen Potassium Carbon Dioxide Anion Gap Glucose Hemoglobin A1c Phosphorus Ferritin Lactate Dehydrogenase C-Reactive Protein Albumin 2.7 L Albumin/Globulin Ratio 0.8 L Procalcitonin 04/06/21 04/05/21 04/05/21 05:50 05:32 05:32 Plt Count Neut % (Auto) Lymph % (Auto) 14.0 L Lymph # (Auto) 0.93 L [place] # (Auto) Absolute Neutrophils Fibrinogen Potassium Carbon Dioxide Anion Gap Glucose 110 H Hemoglobin A1c Phosphorus 2.4 L Ferritin Lactate Dehydrogenase C-Reactive Protein Albumin 2.6 L Albumin/Globulin Ratio 0.8 L Procalcitonin 04/05/21 04/04/21 04/04/21 05:31 07:53 07:53 Plt Count Neut % (Auto) Lymph % (Auto) Lymph # (Auto) [place] # (Auto) Absolute Neutrophils Fibrinogen 827 H Potassium 3.2 L Carbon Dioxide 21 L 19 L Anion Gap 21.0 H Glucose 127 H 142 H Hemoglobin A1c 8.0 H Phosphorus Ferritin 463.0 H Lactate Dehydrogenase 295 H C-Reactive Protein 14.80 H Albumin 2.7 L Albumin/Globulin Ratio 0.8 L 0.9 L Procalcitonin 04/04/21 07:53 Plt Count Neut % (Auto) Lymph % (Auto) Lymph # (Auto) [place] # (Auto) Absolute Neutrophils Fibrinogen Potassium Carbon Dioxide Anion Gap Glucose Hemoglobin A1c Phosphorus Ferritin Lactate Dehydrogenase C-Reactive Protein Albumin Albumin/Globulin Ratio Procalcitonin 0.31 H Meds: Medications Acetaminophen (Acetaminophen 325 Mg Tablet) 650 mg PO Q6HP PRN; Protocol PRN Reason: Per Pain Protocol/Fever > 101 Last Admin: 04/07/21 07:11 Dose: 650 mg Documented by: Albuterol/Ipratropium (Ipratropium/Albuterol 3 Ml Ampul.Neb) 3 ml NEB Q4HRT PRN PRN Reason: Wheezing Dexamethasone (Dexamethasone 4 Mg Tablet) 6 mg PO DAILY [facility] Last Admin: 04/06/21 08:25 Dose: 6 mg Documented by: Dextrose (Dextrose 50% 50 Ml Vial) 0 ml IV UD PRN PRN Reason: Hypoglycemia Diagnostic Test (Pha) (Accu-Chek 1 Each Strip) 1 each FS [facility] Last Admin: 04/07/21 07:24 Dose: 1 each Documented by: Docusate Sodium (Docusate Sodium 100 Mg Capsule) 100 mg PO BID [facility] Last Admin: 04/06/21 21:12 Dose: 100 mg Documented by: Enoxaparin Sodium (Enoxaparin 40 Mg/0.4 Ml Syringe) 40 mg SQ BID [facility] Last Admin: 04/06/21 21:11 Dose: 40 mg Documented by: Gabapentin (Gabapentin 100 Mg Capsule) 100 mg PO TID [facility] Last Admin: 04/06/21 21:12 Dose: 100 mg Documented by: Glucose (Dextrose 31 Gm Oral.Susp) 15 gm PO PRN PRN PRN Reason: Hypoglycemia Guaifenesin (Guaifenesin/Dextromethorphan Oral Rosa) 10 ml PO Q4HP PRN PRN Reason: Cough Hydrochlorothiazide (Hydrochlorothiazide 12.5 Mg Capsule) 12.5 mg PO DAILY [facility] Last Admin: 04/06/21 08:25 Dose: 12.5 mg Documented by: Potassium Chloride 20 meq/ (Dextrose) 260 mls @ 130 mls/hr IV UD PRN PRN Reason: hypokalemia REMDESIVIR 100 mg/ Sodium (Chloride) 250 mls @ 500 mls/hr IV Q24H [facility] Stop: 04/08/21 11:01 Last Infusion: 04/06/21 11:29 Dose: Infused Documented by: Insulin Human Lispro (Insulin Lispro 1 Unit/0.01 Ml Unit) 0 unit SQ [facility]; Protocol Last Admin: 04/07/21 07:26 Dose: Not Given Documented by: Lactulose (Lactulose 20 Gm/30 Ml Oral.Rosa) 10 gm PO DAILYP PRN PRN Reason: Constipation Lisinopril (Lisinopril 20 Mg Tablet) 20 mg PO DAILY [facility] Last Admin: 04/06/21 08:25 Dose: 20 mg Documented by: Meclizine HCl (Meclizine 25 Mg Tablet) 25 mg PO TIDP PRN PRN Reason: Vertigo Last Admin: 04/07/21 02:19 Dose: 25 mg Documented by: Omeprazole (Omeprazole 20 Mg Capsule) 20 mg PO BID [facility] Last Admin: 04/06/21 21:13 Dose: 20 mg Documented by: Ondansetron HCl (Ondansetron 4 Mg/2 Ml Vial) 4 mg IV Q4HP PRN; Protocol PRN Reason: Nausea And Vomiting Last Admin: 04/07/21 05:32 Dose: 4 mg Documented by: Budesonide- Formoterol [ Symbicort] 160-4.5 Mcg Inhaler 2 dose INH BID [facility] Last Admin: 04/06/21 21:33 Dose: Not Given Documented by: Fluticasone- Umeclidin-Vilanter [ Trelegy Ellipta] Inhaler 1 dose INH QDAY [facility] Last Admin: 04/06/21 08:25 Dose: 1 dose Documented by: Insulin Degludec 100 (Unit/Ml Insulin Pen) 50 dose SC HS [facility] Last Admin: 04/06/21 21:12 Dose: 50 dose Documented by: Umeclidinium- Vilanterol [Anoro Ellipta] 62.5-25 Mcg Inhaler 1 dose INH DAILY [facility] Last Admin: 04/06/21 07:53 Dose: Not Given Documented by: Pneumococcal Polyvalent Vaccine (Pneumococcal 23-Xiomy P-Sac Vac 0.5 Ml Syringe) 0.5 ml IM .ONCE ONE Stop: 04/09/21 10:01 Senna (Sennosides 1 Tablet) 2 tab PO HSP PRN PRN Reason: Constipation Sodium Chloride (0.9 % Sodium Chloride 10 Ml Syringe) 10 ml IV Q8 [facility] Last Admin: 04/07/21 05:29 Dose: 10 ml Documented by: A/P Assessment and plan (1) Pneumonia due to 2019 novel coronavirus: Status: Acute (2) Acute hypoxemic respiratory failure due to COVID-19: Status: Acute (3) Diabetes mellitus, type II: Status: Chronic Qualifiers: Diabetes mellitus complication status: with unspecified complications 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 Covid pneumonia with associated acute respiratory failure with hypoxia: Stays in inpatient PCU with telemetry Isolation protocol: Airborne and contact Supplemental oxygen therapy titrate to achieve SPO2 above or equal to 88%, currently on high flow oxygen 60L/min FiO2 100% Serial lactic acid Inflammatory markers Blood culture, no growth to date CBC with auto differential in the morning to trend WBC Remdesivir Also consider Tocilizumab whenever it becomes available Dexamethasone Lovenox Tylenol as needed fever Robitussin DM as needed cough DuoNeb nebulizer as needed wheezing Prone 16 hours/day as tolerated-->patient does not really tolerate it due to back pain Incentive spirometry Chest x-ray daily #2 history of COPD: Does not appear to be in exacerbation Continue home regiment of inhalers DuoNeb nebulizer as needed wheezing Supplemental oxygen therapy titrate to achieve SPO2 above or equal to 88%, currently on high flow oxygen 60L/min FiO2 100% #3 type 2 diabetes mellitus: Hemoglobin A1c Home Metformin Continue long-acting insulin 50 units at bedtime as per home regiment Low-dose correctional scale insulin AC at bedtime Accu-Chek AC at bedtime Hypoglycemia protocol Diabetic diet 4. History of essential hypertension's: Currently normotensive Continue home regimen of oral antihypertensives 5. Morbid obesity: Counseled patient on lifestyle modifications including regular exercise and healthy diet in order to lose weight 6. History of GERD: Continue oral PPI from home regiment GI prophylaxis: Continue oral PPI from home regiment DVT prophylaxis: Lovenox CODE STATUS: Full code Prognosis: Guarded Dispositions: Inpatient PCU with telemetry Time Spent With Patient Time: Total time spent is greater than 50% in coordination of care (as documented) at patient's floor/unit and/or counseling patient: QUALITY VTE Deep Vein Thrombosis/Pulmonary Embolism Present on Admission: No
[2021-04-07] MEDS: ENOXAPARIN 40 MG/0.4 ML SYRINGE SQ SCH ×2 (09:27→21:20)
[2021-04-07] MEDS: GABAPENTIN 100 MG CAPSULE PO SCH ×3 (09:27→21:20)
[2021-04-07] MEDS: HYDROCHLOROTHIAZIDE 12.5 MG CAPSULE PO SCH (09:27)
[2021-04-07] MEDS: DEXAMETHASONE 4 MG TABLET PO SCH (09:28)
[2021-04-07] MEDS: OMEPRAZOLE 20 MG CAPSULE PO SCH ×2 (09:28→21:20)
[2021-04-07] MEDS: LISINOPRIL 20 MG TABLET PO SCH (09:28)
[2021-04-07] MEDS: DOCUSATE SODIUM 100 MG CAPSULE PO SCH ×2 (09:28→21:12)
[2021-04-07] MEDS: Budesonide-Formoterol [Symbicort] 160-4.5 mcg Inhaler INH SCH ×2 (09:29→21:20)
[2021-04-07] MEDS: Umeclidinium-Vilanterol [Anoro Ellipta] 62.5-25 mcg Inhaler INH SCH (09:49)
[2021-04-07] MEDS: Fluticasone-Umeclidin-Vilanter [Trelegy Ellipta] Inhaler INH SCH (09:49)
[2021-04-07] MEDS: REMDESIVIR 100 MG in 0.9 % SODIUM CHLORIDE 250 ML IV SCH (11:07)
[2021-04-07] MEDS ORDERED: TOCILIZUMAB 800 MG in 0.9 % SODIUM CHLORIDE 60 ML IV ONE (17:00)
[2021-04-07] MEDS: INSULIN SC SCH (21:14)
[2021-04-07] MEDS: INSULIN DEGLUDEC 100 UNIT/ML SC SCH (21:14)
[2021-04-08] MEDS: 0.9 % SODIUM CHLORIDE 10 ML SYRINGE IV SCH ×3 (05:46→21:04)
[2021-04-08 07:02] LABS: Basophils # (Auto) 0.02 K/mcL (0.00-0.30); Basophils % (Auto) 0.2 % (0.0-2.0); Eosinophils # (Auto) 0.26 K/mcL (0.00-0.70); Eosinophils % (Auto) 2.8 % (0.0-7.0); Hematocrit 43.8 % (40.1-51.0); Hemoglobin 14.7 g/dL (13.7-17.5); Lymphocytes # (Auto) 0.81 K/mcL (1.50-4.80); Lymphocytes % (Auto) 8.8 % (15.5-49.0); Mean Cell Volume 87.3 fL (80.0-100.0); Mean Corpuscular HGB Conc 33.6 g/dL (31.0-36.0); Mean Platelet Volume 9.4 fL (7.4-10.4); Monocytes # (Auto) 0.75 K/mcL (0.10-0.90); Monocytes % (Auto) 8.1 % (1.0-12.0); Neutrophils % (Auto) 80.1 % (38.0-78.0); Platelet Count 514 K/mcL (140-440); RBC 5.02 M/mcL (4.63-6.08); Red Cell Distribution Width 12.8 % (11.5-14.5); WBC 9.2 K/mcL (4.5-11.0)
[2021-04-08 07:27] LABS: Phosphorous 3.6 mg/dL (2.5-4.5)
--- NOTE | 2021-04-08 08:04 | XRay Report ---
HISTORY: Follow-up COVID pneumonia, short of breath FINDINGS: There are moderate diffuse infiltrates in both lungs. This has both an alveolar and a linear distribution. The greatest consolidation is around the jose david and in the upper lobes. The consolidation in the periphery of both upper lobes is slowly becoming worse. There is no pleural effusion. The jose david are partially obscured by surrounding consolidated lung parenchyma. No adenopathy is detected. The heart size is normal. IMPRESSION: Slowly worsening bilateral pneumonia Interpreted and Authenticated by: Willie Bowden 04/08/21
[2021-04-08] MEDS: INSULIN LISPRO 1 UNIT/0.01 ML UNIT SQ SCH ×4 (08:07→20:54)
[2021-04-08] MEDS: ENOXAPARIN 40 MG/0.4 ML SYRINGE SQ SCH ×2 (08:08→21:04)
[2021-04-08] MEDS: HYDROCHLOROTHIAZIDE 12.5 MG CAPSULE PO SCH (08:08)
[2021-04-08] MEDS: LISINOPRIL 20 MG TABLET PO SCH (08:08)
[2021-04-08] MEDS: DEXAMETHASONE 4 MG TABLET PO SCH (08:08)
[2021-04-08] MEDS: OMEPRAZOLE 20 MG CAPSULE PO SCH ×2 (08:08→21:03)
[2021-04-08] MEDS: GABAPENTIN 100 MG CAPSULE PO SCH ×3 (08:09→21:03)
[2021-04-08] MEDS: Fluticasone-Umeclidin-Vilanter [Trelegy Ellipta] Inhaler INH SCH (08:09)
[2021-04-08] MEDS: Umeclidinium-Vilanterol [Anoro Ellipta] 62.5-25 mcg Inhaler INH SCH (08:09)
[2021-04-08] MEDS: DOCUSATE SODIUM 100 MG CAPSULE PO SCH ×2 (08:09→21:03)
[2021-04-08] MEDS: Budesonide-Formoterol [Symbicort] 160-4.5 mcg Inhaler INH SCH ×2 (08:09→20:56)
[2021-04-08 09:02] LABS: ALT/SGPT 16 U/L (<40); AST/SGOT 13 U/L (<40); Albumin 2.5 gm/dL (3.2-5.2); Albumin/Globulin Ratio 0.7 (1.0-2.3); Alkaline Phosphatase 66 U/L (39-117); Bilirubin,Total 0.8 mg/dL (0.1-1.0); Blood Urea Nitrogen 21 mg/dL (8-23); Carbon Dioxide 24 mmol/L (22-30); Chloride 98 mmol/L (96-108); Globulin 3.7 gm/dL (2.2-3.7); Glomerular Filtration Rate 91; Glucose 137 mg/dL (70-105)
--- NOTE | 2021-04-08 09:18 | Internal Med Progress Note ---
SUBJECTIVE Subjective Patient information: Note initiated : 04/08/21 at 9:15 am Service Date, if different from initiated Date: [] Patient: Rayray Dominguez a 70 y/o M admitted on 04/04/21 for COVID, SOB. Chief Complaint: [CoVID pneumonia] Interval history: History of present illness: Mr. Dominguez is a 70 year old M history of COPD, type 2 diabetes mellitus, essential hypertension's, presenting with 11-day history of shortness of breath, productive cough, fever and chills, general body weakness, general body aches. He is vaccinated against Covid pneum onia with the Jeb & Jeb vaccine. He was in his usual state of health until 11 days ago when he had acute onset of shortness of breath, productive cough, fever and chills, general body weakness, and general body aches. He presented to our ED on April 01, 2021 and was being discharged home with dexamethasone but without oxygen therapy. He returned to our ED today due to worsening of his symptoms. His oxygen saturations were was down to the 60s on room air with rest of the vital signs within normal limits. Labs significant for lack of leukocytosis with WBC 8.6. D-dimer mildly elevated to 0.89. Serum lactic acid 1.4. Serum potassium 3.2. Procalcitonin mildly elevated to 0.31. Chest x-ray showing bilateral patchy infiltrates typical for Covid pneumonia. CT angiogram of the chest negative for any pulmonary embolism. 04/05: Afebrile overnight. Did not tolerate proning. Between BiPAP 12/8cmH2O FiO2 50% and high flow oxygen 60L/min FiO2 100%. Blood culture no growth to date. c/o SOB, improves relative to yesterday. c/o productive cough with clear sputum. c/o chest tightness. c/o fever and chills. Denies anxiety. So-so appetite. Denies general body weakness. 04/06: Afebrile overnight. Did not tolerate proning. Between on high flow oxygen 55L/min FiO2 90%. Blood culture no growth to date. c/o SOB, improves relative to yesterday. c/o productive cough with clear sputum. c/o chest tightness. Denies fever and chills. Denies anxiety. Good appetite. Denies general body weakness. 04/07: Afebrile overnight. Did not tolerate proning. Between on high flow oxygen 60L/ min FiO2 100%. Blood culture no growth to date. c/o SOB. c/o productive cough with clear sputum. c/o respiratory wheezing. c/o chest tightness. Denies fever and chills. Denies anxiety. Good appetite. Denies general body weakness. 04/08: Afebrile overnight. Tolerated proning last night. Between BiPAP /8 FiO2 50-60% and high flow oxygen 35L/min FiO2 70%. Blood culture no growth to date. s/o Toci lizumab on 04/07. c/o SOB. c/o productive cough with clear sputum. Denies respiratory wheezing. c/o chest tightness. Denies fever and chills. Denies anxiety. Good appetite. Denies general body weakness. Constitutional Vitals: Vital Signs Temp Pulse Resp BP Pulse Ox 36.4 C 55 L 17 119/74 93 04/08/21 08:01 04/08/21 03:00 04/08/21 08:01 04/08/21 08:01 04/08/21 08:28 Period Temp Pulse Resp BP Sys/Amin Pulse Ox Last 24 Hr 36.3 C-37.0 C 53-81 13-28 99-123/58-77 88-100 Intake and Output 04/07/21 04/08/21 04/08/21 21:59 05:59 13:59 Intake Total 300 0 400 Output Total 200 300 Balance 100 0 100 Weight 97.477 kg Intake & Output: Intake & Output 04/07/21 04/08/21 04/08/21 21:59 05:59 13:59 Intake Total 300 0 400 Output Total 200 300 Balance 100 0 100 Weight 97.477 kg Intake: IV 100 Actemra 800 mg In Sodium 100 Chloride 0.9% 60 ml @ 100 mls/ hr IV ONCE ONE Rx#:[id number] Oral 200 0 400 Output: Void Amount 200 300 Other: Meal Lunch Breakfast Percent of Meal Consumed Refused 100% Feeding Ability Independent Urine Appearance Clear Clear Urine Color Dark Yellow Dark Yellow Urine Odor Normal General appearance: cooperative and no acute distress Head Head exam: Present atraumatic and normocephalic Eye Eye exam: Present EOMI and PERRL ENT ENT exam: Present mucous membranes moist, normal exam and normal external ear exam Additional comments: High flow oxygen in place Neck Neck exam: Present normal inspection; Absent lymphadenopathy, tenderness and thyromegaly Respiratory Respiratory exam: Present rhonchi; Absent accessory muscle use, respiratory distress and wheezes Cardiovascular Cardiovascular exam: Present normal rate and rhythm; Absent JVD GI/Abdominal GI/Abdominal exam: Present normal bowel sounds and soft; Absent organomegaly and tenderness Rectal Rectal exam: Present deferred Extremities Exam Extremities exam: Present full ROM, normal capillary refill and normal inspection; Absent tenderness Neurological Exam Neurological exam: Present alert, CN II-XII intact and oriented X3; Absent motor sensory deficit Psychiatric Psychiatric exam: Present normal affect and normal mood; Absent anxious and depressed Skin Skin exam: Present dry and intact OBJ DATA Labs CBC & Chem 7: 04/08/21 06:01 04/08/21 08:10 Labs: Abnormal Lab Results 04/08/21 04/08/21 04/07/21 08:10 06:01 05:44 Plt Count 514 H Neut % (Auto) 80.1 H Lymph % (Auto) 8.8 L Lymph # (Auto) 0.81 L [place] # (Auto) Absolute Neutrophils Glucose 137 H Albumin 2.5 L 2.7 L Albumin/Globulin Ratio 0.7 L 0.8 L 04/07/21 04/06/21 04/06/21 05:44 05:51 05:50 Plt Count 478 H Neut % (Auto) 80.6 H 79.6 H Lymph % (Auto) 8.9 L 12.6 L Lymph # (Auto) 0.93 L 1.03 L [place] # (Auto) 0.91 H Absolute Neutrophils 8.44 H Glucose 110 H Albumin 2.6 L Albumin/Globulin Ratio 0.8 L Meds: Medications Acetaminophen (Acetaminophen 325 Mg Tablet) 650 mg PO Q6HP PRN; Protocol PRN Reason: Per Pain Protocol/Fever > 101 Last Admin: 04/07/21 22:12 Dose: 650 mg Documented by: Albuterol/Ipratropium (Ipratropium/Albuterol 3 Ml Ampul.Neb) 3 ml NEB Q4HRT PRN PRN Reason: Wheezing Dexamethasone (Dexamethasone 4 Mg Tablet) 6 mg PO DAILY [place] Last Admin: 04/08/21 08:08 Dose: 6 mg Documented by: Dextrose (Dextrose 50% 50 Ml Vial) 0 ml IV UD PRN PRN Reason: Hypoglycemia Diagnostic Test (Pha) (Accu-Chek 1 Each Strip) 1 each FS ACHS [facility] Last Admin: 04/08/21 08:07 Dose: 1 each Documented by: Docusate Sodium (Docusate Sodium 100 Mg Capsule) 100 mg PO BID [facility] Last Admin: 04/08/21 08:09 Dose: Not Given Documented by: Enoxaparin Sodium (Enoxaparin 40 Mg/0.4 Ml Syringe) 40 mg SQ BID [facility] Last Admin: 04/08/21 08:08 Dose: 40 mg Documented by: Gabapentin (Gabapentin 100 Mg Capsule) 100 mg PO TID [facility] Last Admin: 04/08/21 08:09 Dose: 100 mg Documented by: Glucose (Dextrose 31 Gm Oral.Susp) 15 gm PO PRN PRN PRN Reason: Hypoglycemia Guaifenesin (Guaifenesin/Dextromethorphan Oral Rosa) 10 ml PO Q4HP PRN PRN Reason: Cough Hydrochlorothiazide (Hydrochlorothiazide 12.5 Mg Capsule) 12.5 mg PO DAILY [facility] Last Admin: 04/08/21 08:08 Dose: 12.5 mg Documented by: Potassium Chloride 20 meq/ (Dextrose) 260 mls @ 130 mls/hr IV UD PRN PRN Reason: hypokalemia REMDESIVIR 100 mg/ Sodium (Chloride) 250 mls @ 500 mls/hr IV Q24H [facility] Stop: 04/08/21 11:01 Last Infusion: 04/07/21 11:40 Dose: Infused Documented by: Insulin Human Lispro (Insulin Lispro 1 Unit/0.01 Ml Unit) 0 unit SQ [facility]; Protocol Last Admin: 04/08/21 08:07 Dose: 1 units Documented by: Lactulose (Lactulose 20 Gm/30 Ml Oral.Rosa) 10 gm PO DAILYP PRN PRN Reason: Constipation Last Admin: 04/07/21 09:27 Dose: 10 gm Documented by: Lisinopril (Lisinopril 20 Mg Tablet) 20 mg PO DAILY [facility] Last Admin: 04/08/21 08:08 Dose: 20 mg Documented by: Meclizine HCl (Meclizine 25 Mg Tablet) 25 mg PO TIDP PRN PRN Reason: Vertigo Last Admin: 04/07/21 02:19 Dose: 25 mg Documented by: Omeprazole (Omeprazole 20 Mg Capsule) 20 mg PO BID [facility] Last Admin: 04/08/21 08:08 Dose: 20 mg Documented by: Ondansetron HCl (Ondansetron 4 Mg/2 Ml Vial) 4 mg IV Q4HP PRN; Protocol PRN Reason: Nausea And Vomiting Last Admin: 04/07/21 05:32 Dose: 4 mg Documented by: Budesonide- Formoterol [ Symbicort] 160-4.5 Mcg Inhaler 2 dose INH BID [facility] Last Admin: 04/08/21 08:09 Dose: Not Given Documented by: Fluticasone- Umeclidin-Vilanter [ Trelegy Ellipta] Inhaler 1 dose INH QDAY [facility] Last Admin: 04/08/21 08:09 Dose: 1 dose Documented by: Insulin Degludec 100 (Unit/Ml Insulin Pen) 50 dose SC HS [facility] Last Admin: 04/07/21 21:14 Dose: 50 dose Documented by: Umeclidinium- Vilanterol [Anoro Ellipta] 62.5-25 Mcg Inhaler 1 dose INH DAILY [facility] Last Admin: 04/08/21 08:09 Dose: Not Given Documented by: Pneumococcal Polyvalent Vaccine (Pneumococcal 23-Xiomy P-Sac Vac 0.5 Ml Syringe) 0.5 ml IM .ONCE ONE Stop: 04/09/21 10:01 Senna (Sennosides 1 Tablet) 2 tab PO HSP PRN PRN Reason: Constipation Sodium Chloride (0.9 % Sodium Chloride 10 Ml Syringe) 10 ml IV Q8 [facility] Last Admin: 04/08/21 05:46 Dose: 10 ml Documented by: A/P Assessment and plan (1) Pneumonia due to 2019 novel coronavirus: Status: Acute (2) Acute hypoxemic respiratory failure due to COVID-19: Status: Acute (3) Diabetes mellitus, type II: Status: Chronic Qualifiers: Diabetes mellitus complication status: with unspecified complications Diabetes mellitus usp insulin use: unspecified usp insulin use status Qualified Code(s): E11.8 - Type 2 diabetes mellitus with unspecified complications (4) COPD (chronic obstructive pulmonary disease): Status: Chronic (5) Hypertension: Status: Chronic Qualifiers: Hypertension type: essential hypertension Qualified Code(s): I10 - Essential (primary) hypertension (6) GERD (gastroesophageal reflux disease): Status: Chronic Qualifiers: Esophagitis presence: with esophagitis Qualified Code(s): K21.0 - Gastro-esophageal reflux disease with esophagitis Narrative A/P Narrative: Assessment and plan: 1. Covid pneumonia with associated acute respiratory failure with hypoxia: Stays in inpatient PCU with telemetry Isolation protocol: Airborne and contact Supplemental oxygen therapy titrate to achieve SPO2 above or equal to 88%, currently between BiPAP 12/8 FiO2 50-60% and high flow oxygen 35L/min FiO2 70% Serial lactic acid Inflammatory markers Blood culture, no growth to date CBC with auto differential in the morning to trend WBC Remdesivir s/p Tocilizumab on 04/07 Dexamethasone Lovenox Tylenol as needed fever Robitussin DM as needed cough DuoNeb nebulizer as needed wheezing Prone 16 hours/day as tolerated Incentive spirometry Chest x-ray daily #2 history of COPD: Does not appear to be in exacerbation Continue home regiment of inhalers DuoNeb nebulizer as needed wheezing Supplemental oxygen therapy titrate to achieve SPO2 above or equal to 88%, currently between BiPAP 12/8 FiO2 50-60% and high flow oxygen 35L/min FiO2 70% #3 type 2 diabetes mellitus: Hemoglobin A1c Home Metformin Continue long-acting insulin 50 units at bedtime as per home regiment Low-dose correctional scale insulin AC at bedtime Accu-Chek AC at bedtime Hypoglycemia protocol Diabetic diet 4. History of essential hypertension's: Currently normotensive Continue home regimen of oral antihypertensives 5. Morbid obesity: Counseled patient on lifestyle modifications including regular exercise and healthy diet in order to lose weight 6. History of GERD: Continue oral PPI from home regiment GI prophylaxis: Continue oral PPI from home regiment DVT prophylaxis: Lovenox CODE STATUS: Full code Prognosis: Guarded Dispositions: Inpatient PCU with telemetry Time Spent With Patient Time: Total time spent is greater than 50% in coordination of care (as documented) at patient's floor/unit and/or counseling patient: QUALITY VTE Deep Vein Thrombosis/Pulmonary Embolism Present on Admission: No
[2021-04-08] MEDS: REMDESIVIR 100 MG in 0.9 % SODIUM CHLORIDE 250 ML IV SCH (10:56)
[2021-04-08] MEDS: ACETAMINOPHEN 325 MG TABLET PO PRN ×2 (14:19→21:02)
--- NOTE | 2021-04-08 14:39 | Internal Med Progress Note ---
SUBJECTIVE Subjective Patient information: Note initiated : 04/08/21 at 2:34 pm Service Date, if different from initiated Date: [] Patient: Rayray Dominguez a 70 y/o M admitted on 04/04/21 for COVID, SOB. Chief Complaint: [] Interval history: History of present illness: Mr. Dominguez is a 70 year old M history of COPD, type 2 diabetes mellitus, essential hypertension's, presenting with 11-day history of shortness of breath, productive cough, fever and chills, general body weakness, general body aches. He is vaccinated against Covid pneumonia with the [employer]eb [employer] Jeb vaccine. He was in his usual state of health until 11 days ago when he had acute onset of shortness of breath, productive cough, fever and chills, general body weakness, and general body aches. He presented to our ED on April 01, 2021 and was being discharged home with dexamethasone but without oxygen therapy. He returned to our ED today due to worsening of his symptoms. His oxygen saturations were was down to the 60s on room air with rest of the vital signs within normal limits. Labs significant for lack of leukocytosis with WBC 8.6. D-dimer mildly elevated to 0.89. Serum lactic acid 1.4. Serum potassium 3.2. Procalcitonin mildly elevated to 0.31. Chest x-ray showing bilateral patchy infiltrates typical for Covid pneumonia. CT angiogram of the chest negative for any pulmonary embolism. 04/05: Afebrile overnight. Did not tolerate proning. Between BiPAP 12/8cmH2O FiO2 50% and high flow oxygen 60L/min FiO2 100%. Blood culture no growth to date. c/o SOB, improves relative to yesterday. c/o productive cough with clear sputum. c/o chest tightness. c/o fever and chills. Denies anxiety. So-so appetite. Denies general body weakness. 04/06: Afebrile overnight. Did not tolerate proning. Between on high flow oxygen 55L/min FiO2 90%. Blood culture no growth to date. c/o SOB, improves relative to yesterday. c/o productive cough with clear sputum. c/o chest tightness. Denies fever and chills. Denies anxiety. Good appetite. Denies general body weakness. 04/07: Afebrile overnight. Did not tolerate proning. Between on high flow oxygen 60L/min FiO2 100%. Blood culture no growth to date. c/o SOB. c/o productive cough with clear sputum. c/o respiratory wheezing. c/o chest tightness. Denies fever and chills. Denies anxiety. Good appetite. Denies general body weakness. 04/08: Afebrile overnight. Tolerated proning last night. Between BiPAP 12/8 FiO2 50-60% and high flow oxygen 35L/min FiO2 70%. Blood culture no growth to date. s/o Tocilizumab on 04/07. c/o SOB. c/o productive cough with clear sputum. Denies respiratory wheezing. c/o chest tightness. Denies fever and chills. Denies anxiety. Good appetite. Denies general body weakness. 04/09: Improving oxygen requirements, transfer to med/surg. Physical exam Head: Atraumatic, normal inspection. Eyes: normal appearance, no scleral icterus. Neck: full ROM Respiratory: no respiratory distress. Cardiovascular: normal rate and rhythm, S1, S2. GI/Abdominal: soft, nontender, no guarding. Extremities: full range of motion, nontender. Neurological: CN II-XII intact, intact motor, intact sensation. Psychiatric: normal mood. Skin: warm, normal color Constitutional Vitals: Vital Signs Temp Pulse Resp BP Pulse Ox 97.4 F 55 L 24 H 116/84 96 04/08/21 12:09 04/08/21 03:00 04/08/21 14:01 04/08/21 14:01 04/08/21 14:01 Period Temp Pulse Resp BP Sys/Amin Pulse Ox Last 24 Hr 97.3 F-98.2 F 53-81 13-25 99-120/58-84 88-99 Intake and Output 04/08/21 04/08/21 04/08/21 05:59 13:59 21:59 Intake Total 0 650 Output Total 300 Balance 0 350 Intake & Output: Intake & Output 04/08/21 04/08/21 04/08/21 05:59 13:59 21:59 Intake Total 0 650 Output Total 300 Balance 0 350 Intake: IV 250 Veklury 100 mg In Sodium 250 Chloride 0.9% 250 ml @ 500 mls/ hr IV Q24H [facility] Rx#:[id number] Oral 0 400 Output: Void Amount 300 Other: Meal Breakfast Percent of Meal Consumed 100% Feeding Ability Independent Urine Appearance Clear Urine Color Dark Yellow OBJ DATA Labs CBC & Chem 7: 04/09/21 05:37 04/09/21 05:37 Labs: Abnormal Lab Results 04/08/21 04/08/21 04/07/21 08:10 06:01 05:44 Plt Count 514 H Neut % (Auto) 80.1 H Lymph % (Auto) 8.8 L Lymph # (Auto) 0.81 L [place] # (Auto) Absolute Neutrophils Glucose 137 H Albumin 2.5 L 2.7 L Albumin/Globulin Ratio 0.7 L 0.8 L 04/07/21 04/06/21 04/06/21 05:44 05:51 05:50 Plt Count 478 H Neut % (Auto) 80.6 H 79.6 H Lymph % (Auto) 8.9 L 12.6 L Lymph # (Auto) 0.93 L 1.03 L [place] # (Auto) 0.91 H Absolute Neutrophils 8.44 H Glucose 110 H Albumin 2.6 L Albumin/Globulin Ratio 0.8 L Meds: Medications Acetaminophen (Acetaminophen 325 Mg Tablet) 650 mg PO Q6HP PRN; Protocol PRN Reason: Per Pain Protocol/Fever > 101 Last Admin: 04/08/21 14:19 Dose: 650 mg Documented by: Albuterol/Ipratropium (Ipratropium/Albuterol 3 Ml Ampul.Neb) 3 ml NEB Q4HRT PRN PRN Reason: Wheezing Dexamethasone (Dexamethasone 4 Mg Tablet) 6 mg PO DAILY [facility] Last Admin: 04/08/21 08:08 Dose: 6 mg Documented by: Dextrose (Dextrose 50% 50 Ml Vial) 0 ml IV UD PRN PRN Reason: Hypoglycemia Diagnostic Test (Pha) (Accu-Chek 1 Each Strip) 1 each FS ACHS [facility] Last Admin: 04/08/21 11:41 Dose: 1 each Documented by: Docusate Sodium (Docusate Sodium 100 Mg Capsule) 100 mg PO BID [facility] Last Admin: 04/08/21 08:09 Dose: Not Given Documented by: Enoxaparin Sodium (Enoxaparin 40 Mg/0.4 Ml Syringe) 40 mg SQ BID [facility] Last Admin: 04/08/21 08:08 Dose: 40 mg Documented by: Gabapentin (Gabapentin 100 Mg Capsule) 100 mg PO TID [facility] Last Admin: 04/08/21 08:09 Dose: 100 mg Documented by: Glucose (Dextrose 31 Gm Oral.Susp) 15 gm PO PRN PRN PRN Reason: Hypoglycemia Guaifenesin (Guaifenesin/Dextromethorphan Oral Rosa) 10 ml PO Q4HP PRN PRN Reason: Cough Hydrochlorothiazide (Hydrochlorothiazide 12.5 Mg Capsule) 12.5 mg PO DAILY [facility] Last Admin: 04/08/21 08:08 Dose: 12.5 mg Documented by: Potassium Chloride 20 meq/ (Dextrose) 260 mls @ 130 mls/hr IV UD PRN PRN Reason: hypokalemia Insulin Human Lispro (Insulin Lispro 1 Unit/0.01 Ml Unit) 0 unit SQ ACHS [facility]; Protocol Last Admin: 04/08/21 11:42 Dose: 2 units Documented by: Lactulose (Lactulose 20 Gm/30 Ml Oral.Rosa) 10 gm PO DAILYP PRN PRN Reason: Constipation Last Admin: 04/07/21 09:27 Dose: 10 gm Documented by: Lisinopril (Lisinopril 20 Mg Tablet) 20 mg PO DAILY [facility] Last Admin: 04/08/21 08:08 Dose: 20 mg Documented by: Meclizine HCl (Meclizine 25 Mg Tablet) 25 mg PO TIDP PRN PRN Reason: Vertigo Last Admin: 04/07/21 02:19 Dose: 25 mg Documented by: Omeprazole (Omeprazole 20 Mg Capsule) 20 mg PO BID [facility] Last Admin: 04/08/21 08:08 Dose: 20 mg Documented by: Ondansetron HCl (Ondansetron 4 Mg/2 Ml Vial) 4 mg IV Q4HP PRN; Protocol PRN Reason: Nausea And Vomiting Last Admin: 04/07/21 05:32 Dose: 4 mg Documented by: Budesonide- Formoterol [ Symbicort] 160-4.5 Mcg Inhaler 2 dose INH BID [facility] Last Admin: 04/08/21 08:09 Dose: Not Given Documented by: Fluticasone- Umeclidin-Vilanter [ Trelegy Ellipta] Inhaler 1 dose INH QDAY [facility] Last Admin: 04/08/21 08:09 Dose: 1 dose Documented by: Insulin Degludec 100 (Unit/Ml Insulin Pen) 50 dose SC HS [facility] Last Admin: 04/07/21 21:14 Dose: 50 dose Documented by: Umeclidinium- Vilanterol [Anoro Ellipta] 62.5-25 Mcg Inhaler 1 dose INH DAILY [facility] Last Admin: 04/08/21 08:09 Dose: Not Given Documented by: Pneumococcal Polyvalent Vaccine (Pneumococcal 23-Xiomy P-Sac Vac 0.5 Ml Syringe) 0.5 ml IM .ONCE ONE Stop: 04/09/21 10:01 Senna (Sennosides 1 Tablet) 2 tab PO HSP PRN PRN Reason: Constipation Sodium Chloride (0.9 % Sodium Chloride 10 Ml Syringe) 10 ml IV Q8 [facility] Last Admin: 04/08/21 14:20 Dose: 10 ml Documented by: A/P Narrative A/P Narrative: Assessment: 70 year old male with a history of hypertension, type 2 diabetes mellitus, COPD admitted for severe COVID-19 pneumonia #Acute hypoxic respiratory failure #Severe COVID-19 pneumonia #COPD, stable #Type 2 diabetes mellitus #Essential hypertension #Obesity #GERD Plan -Dexamethasone, received Tocilizumab. -Oxygen supplementation, wean as tolerated. -Essential home meds. -DVT ppx: Lovenox -Code status: Physician Vice President Spent With Patient Time: Total time spent is greater than 50% in coordination of care (as docu mented) at patient's floor/unit and/or counseling patient: QUALITY VTE Deep Vein Thrombosis/Pulmonary Embolism Present on Admission: No
[2021-04-08] MEDS: INSULIN SC SCH (21:02)
[2021-04-08] MEDS: INSULIN DEGLUDEC 100 UNIT/ML SC SCH (21:02)
[2021-04-09] MEDS: ACETAMINOPHEN 325 MG TABLET PO PRN ×2 (05:36→20:19)
[2021-04-09] MEDS: 0.9 % SODIUM CHLORIDE 10 ML SYRINGE IV SCH ×3 (05:37→20:19)
[2021-04-09 06:55] LABS: Basophils # (Auto) 0.01 K/mcL (0.00-0.30); Basophils % (Auto) 0.1 % (0.0-2.0); Eosinophils # (Auto) 0.39 K/mcL (0.00-0.70); Eosinophils % (Auto) 4.4 % (0.0-7.0); Hematocrit 42.8 % (40.1-51.0); Lymphocytes # (Auto) 1.05 K/mcL (1.50-4.80); Lymphocytes % (Auto) 11.7 % (15.5-49.0); Mean Cell Volume 86.6 fL (80.0-100.0); Mean Corpuscular HGB Conc 32.7 g/dL (31.0-36.0); Mean Platelet Volume 9.1 fL (7.4-10.4); Monocytes # (Auto) 0.78 K/mcL (0.10-0.90); Monocytes % (Auto) 8.7 % (1.0-12.0); Neutrophils % (Auto) 75.1 % (38.0-78.0); Platelet Count 552 K/mcL (140-440); RBC 4.94 M/mcL (4.63-6.08); Red Cell Distribution Width 12.7 % (11.5-14.5)
[2021-04-09 07:18] LABS: ALT/SGPT 14 U/L (<40); AST/SGOT 10 U/L (<40); Albumin 2.8 gm/dL (3.2-5.2); Albumin/Globulin Ratio 0.8 (1.0-2.3); Alkaline Phosphatase 64 U/L (39-117); Bilirubin,Total 0.6 mg/dL (0.1-1.0); Blood Urea Nitrogen 20 mg/dL (8-23); Calcium 8.8 mg/dL (8.6-10.4); Carbon Dioxide 24 mmol/L (22-30); Chloride 97 mmol/L (96-108); Globulin 3.3 gm/dL (2.2-3.7); Glomerular Filtration Rate 96; Glucose 113 mg/dL (70-105)
[2021-04-09] MEDS: INSULIN LISPRO 1 UNIT/0.01 ML UNIT SQ SCH ×4 (07:25→20:51)
[2021-04-09] MEDS: ENOXAPARIN 40 MG/0.4 ML SYRINGE SQ SCH ×2 (09:22→20:19)
[2021-04-09] MEDS: Budesonide-Formoterol [Symbicort] 160-4.5 mcg Inhaler INH SCH ×2 (09:23→20:20)
[2021-04-09] MEDS: HYDROCHLOROTHIAZIDE 12.5 MG CAPSULE PO SCH (09:23)
[2021-04-09] MEDS: GABAPENTIN 100 MG CAPSULE PO SCH ×3 (09:23→20:19)
[2021-04-09] MEDS: OMEPRAZOLE 20 MG CAPSULE PO SCH ×2 (09:23→20:19)
[2021-04-09] MEDS: Umeclidinium-Vilanterol [Anoro Ellipta] 62.5-25 mcg Inhaler INH SCH (09:23)
[2021-04-09] MEDS: Fluticasone-Umeclidin-Vilanter [Trelegy Ellipta] Inhaler INH SCH (09:23)
[2021-04-09] MEDS: DEXAMETHASONE 4 MG TABLET PO SCH (09:23)
[2021-04-09] MEDS: DOCUSATE SODIUM 100 MG CAPSULE PO SCH ×3 (09:23→20:30)
[2021-04-09] MEDS: LISINOPRIL 20 MG TABLET PO SCH (09:23)
[2021-04-09] MEDS ORDERED: FLU VACC QS2021-22(6MOS UP)/PF 60 MCG/0.5 ML SYRINGE IM ONE (10:00)
[2021-04-09] MEDS ORDERED: PNEUMOCOCCAL 23-VAL P-SAC VAC 0.5 ML SYRINGE IM ONE (10:00)
[2021-04-09] MEDS: INSULIN SC SCH (20:18)
[2021-04-09] MEDS: INSULIN DEGLUDEC 100 UNIT/ML SC SCH (20:18)
[2021-04-10] MEDS: 0.9 % SODIUM CHLORIDE 10 ML SYRINGE IV SCH ×3 (05:16→20:45)
[2021-04-10] MEDS: INSULIN LISPRO 1 UNIT/0.01 ML UNIT SQ SCH ×5 (07:31→21:43)
[2021-04-10] MEDS: DOCUSATE SODIUM 100 MG CAPSULE PO SCH ×2 (07:32→21:44)
[2021-04-10] MEDS: DEXAMETHASONE 4 MG TABLET PO SCH (08:49)
[2021-04-10] MEDS: OMEPRAZOLE 20 MG CAPSULE PO SCH ×2 (08:50→21:44)
[2021-04-10] MEDS: ENOXAPARIN 40 MG/0.4 ML SYRINGE SQ SCH ×2 (08:50→21:44)
[2021-04-10] MEDS: GABAPENTIN 100 MG CAPSULE PO SCH ×3 (08:50→21:44)
[2021-04-10] MEDS: HYDROCHLOROTHIAZIDE 12.5 MG CAPSULE PO SCH (10:33)
[2021-04-10] MEDS: Umeclidinium-Vilanterol [Anoro Ellipta] 62.5-25 mcg Inhaler INH SCH (10:33)
[2021-04-10] MEDS: Fluticasone-Umeclidin-Vilanter [Trelegy Ellipta] Inhaler INH SCH (10:33)
[2021-04-10] MEDS: LISINOPRIL 20 MG TABLET PO SCH (10:33)
[2021-04-10] MEDS: Budesonide-Formoterol [Symbicort] 160-4.5 mcg Inhaler INH SCH (10:36)
[2021-04-10] MEDS: ACETAMINOPHEN 325 MG TABLET PO PRN ×2 (16:11→21:42)
--- NOTE | 2021-04-10 16:39 | Internal Med Progress Note ---
SUBJECTIVE Subjective Patient information: Note initiated : 04/10/21 at 4:38 pm Service Date, if different from initiated Date: [] Patient: Rayray Dominguez a 70 y/o M admitted on 04/04/21 for COVID, SOB. Chief Complaint: [] Interval history: History of present illness: Mr. Dominguez is a 70 year old M history of COPD, type 2 diabetes mellitus, essential hypertension's, presenting with 11-day history of shortness of breath, productive cough, fever and chills, general body weakness, general body aches. He is vaccinated against Covid pneumonia with the Jeb [employer] Jeb vaccine. He was in his usual state of health until 11 days ago when he had acute onset of shortness of breath, productive cough, fever and chills, general body weakness, and general body aches. He presented to our ED on April 01, 2021 and was being discharged home with dexamethasone but without oxygen therapy. He returned to our ED today due to worsening of his symptoms. His oxygen saturations were was down to the 60s on room air with rest of the vital signs within normal limits. Labs significant for lack of leukocytosis with WBC 8.6. D-dimer mildly elevated to 0.89. Serum lactic acid 1.4. Serum potassium 3.2. Procalcitonin mildly elevated to 0.31. Chest x-ray showing bilateral patchy infiltrates typical for Covid pneumonia. CT angiogram of the chest negative for any pulmonary embolism. 04/05: Afebrile overnight. Did not tolerate proning. Between BiPAP 12/8cmH2O FiO2 50% and high flow oxygen 60L/min FiO2 100%. Blood culture no growth to date. c/o SOB, improves relative to yesterday. c/o productive cough with clear sputum. c/o chest tightness. c/o fever and chills. Denies anxiety. So-so appetite. Denies general body weakness. 04/06: Afebrile overnight. Did not tolerate proning. Between on high flow oxygen 55L/min FiO2 90%. Blood culture no growth to date. c/o SOB, improves relative to yesterday. c/o productive cough with clear sputum. c/o chest tightness. Denies fever and chills. Denies anxiety. Good appetite. Denies general body weakness. 04/07: Afebrile overnight. Did not tolerate proning. Between on high flow oxygen 60L/min FiO2 100%. Blood culture no growth to date. c/o SOB. c/o productive cough with clear sputum. c/o respiratory wheezing. c/o chest tightness. Denies fever and chills. Denies anxiety. Good appetite. Denies general body weakness. 04/08: Afebrile overnight. Tolerated proning last night. Between BiPAP 12/8 FiO2 50-60% and high flow oxygen 35L/min FiO2 70%. Blood culture no growth to date. s/o Tocilizumab on 04/07. c/o SOB. c/o productive cough with clear sputum. Denies respiratory wheezing. c/o chest tightness. Denies fever and chills. Denies anxiety. Good appetite. Denies general body weakness. 04/09: Improving oxygen requirements, no major events overnight. 04/10: Transfer to med/surg, holding hydrochlorothiazide for low BP-asymptomatic, increased SSI to medium. Physical exam Head: Atraumatic, normal inspection. Eyes: normal appearance, no scleral icterus. Neck: full ROM Respiratory: no respiratory distress. Cardiovascular: normal rate and rhythm, S1, S2. GI/Abdominal: soft, nontender, no guarding. Extremities: full range of motion, nontender. Neurological: CN II-XII intact, intact motor, intact sensation. Psychiatric: normal mood. Skin: warm, normal color Constitutional Vitals: Vital Signs Temp Pulse Resp BP Pulse Ox 96.6 F L 81 24 H 100/55 92 04/10/21 12:01 04/10/21 06:30 04/10/21 14:39 04/10/21 14:01 04/10/21 14:39 Period Temp Pulse Resp BP Sys/Amin Pulse Ox Last 24 Hr 96.6 F-97.2 F 81 16-31 90-122/54-79 91-97 Intake and Output 04/10/21 04/10/21 04/10/21 05:59 13:59 21:59 Intake Total 340 Output Total 500 Balance -160 Weight 96.729 kg Patient Weight 04/11/21 05:59 Weight 96.729 kg Intake & Output: Intake & Output 04/10/21 04/10/21 04/10/21 05:59 13:59 21:59 Intake Total 340 Output Total 500 Balance -160 Weight 96.729 kg Intake: Oral 340 Output: Void Amount 500 Other: Urine Appearance Clear Urine Color Dark Yellow OBJ DATA Labs CBC & Chem 7: 04/09/21 05:37 04/09/21 05:37 Labs: Abnormal Lab Results 04/09/21 04/09/21 04/08/21 05:37 05:37 08:10 Plt Count 552 H Neut % (Auto) Lymph % (Auto) 11.7 L Lymph # (Auto) 1.05 L Glucose 113 H 137 H C-Reactive Protein 6.10 H Albumin 2.8 L 2.5 L Albumin/Globulin Ratio 0.8 L 0.7 L 04/08/21 06:01 Plt Count 514 H Neut % (Auto) 80.1 H Lymph % (Auto) 8.8 L Lymph # (Auto) 0.81 L Glucose C-Reactive Protein Albumin Albumin/Globulin Ratio Meds: Medications Acetaminophen (Acetaminophen 325 Mg Tablet) 650 mg PO Q6HP PRN; Protocol PRN Reason: Per Pain Protocol/Fever > 101 Last Admin: 04/10/21 16:11 Dose: 650 mg Documented by: Albuterol/Ipratropium (Ipratropium/Albuterol 3 Ml Ampul.Neb) 3 ml NEB Q4HRT PRN PRN Reason: Wheezing Dexamethasone (Dexamethasone 4 Mg Tablet) 6 mg PO DAILY [facility] Last Admin: 04/10/21 08:49 Dose: 6 mg Documented by: Dextrose (Dextrose 50% 50 Ml Vial) 0 ml IV UD PRN PRN Reason: Hypoglycemia Diagnostic Test (Pha) (Accu-Chek 1 Each Strip) 1 each FS ACHS [facility] Last Admin: 04/10/21 16:07 Dose: 1 each Documented by: Docusate Sodium (Docusate Sodium 100 Mg Capsule) 100 mg PO BID [facility] Last Admin: 04/10/21 07:32 Dose: Not Given Documented by: Enoxaparin Sodium (Enoxaparin 40 Mg/0.4 Ml Syringe) 40 mg SQ BID [facility] Last Admin: 04/10/21 08:50 Dose: 40 mg Documented by: Gabapentin (Gabapentin 100 Mg Capsule) 100 mg PO TID [facility] Last Admin: 04/10/21 16:17 Dose: 100 mg Documented by: Glucose (Dextrose 31 Gm Oral.Susp) 15 gm PO PRN PRN PRN Reason: Hypoglycemia Guaifenesin (Guaifenesin/Dextromethorphan Oral Rosa) 10 ml PO Q4HP PRN PRN Reason: Cough Potassium Chloride 20 meq/ (Dextrose) 260 mls @ 130 mls/hr IV UD PRN PRN Reason: hypokalemia Insulin Human Lispro (Insulin Lispro 1 Unit/0.01 Ml Unit) 0 unit SQ ACHS [facility]; Protocol Last Admin: 04/10/21 16:07 Dose: 6 units Documented by: Lactulose (Lactulose 20 Gm/30 Ml Oral.Rosa) 10 gm PO DAILYP PRN PRN Reason: Constipation Last Admin: 04/07/21 09:27 Dose: 10 gm Documented by: Lisinopril (Lisinopril 20 Mg Tablet) 20 mg PO DAILY [facility] Meclizine HCl (Meclizine 25 Mg Tablet) 25 mg PO TIDP PRN PRN Reason: Vertigo Last Admin: 04/07/21 02:19 Dose: 25 mg Documented by: Omeprazole (Omeprazole 20 Mg Capsule) 20 mg PO BID [facility] Last Admin: 04/10/21 08:50 Dose: 20 mg Documented by: Ondansetron HCl (Ondansetron 4 Mg/2 Ml Vial) 4 mg IV Q4HP PRN; Protocol PRN Reason: Nausea And Vomiting Last Admin: 04/07/21 05:32 Dose: 4 mg Documented by: Fluticasone- Umeclidin-Vilanter [ Trelegy Ellipta] Inhaler 1 dose INH QDAY [facility] Last Admin: 04/10/21 10:33 Dose: 1 dose Documented by: Insulin Degludec 100 (Unit/Ml Insulin Pen) 50 dose SC HS [facility] Last Admin: 04/09/21 20:18 Dose: 50 dose Documented by: Pneumococcal Polyvalent Vaccine (Pneumococcal 23-Xiomy P-Sac Vac 0.5 Ml Syringe) 0.5 ml IM .ONCE ONE Stop: 04/11/21 10:16 Senna (Sennosides 1 Tablet) 2 tab PO HSP PRN PRN Reason: Constipation Sodium Chloride (0.9 % Sodium Chloride 10 Ml Syringe) 10 ml IV Q8 [facility] Last Admin: 04/10/21 16:16 Dose: 10 ml Documented by: A/P Narrative A/P Narrative: Assessment: 70 year old male with a history of hypertension, type 2 diabetes mellitus, COPD admitted for severe COVID-19 pneumonia #Acute hypoxic respiratory failure #Severe COVID-19 pneumonia #COPD, stable #Type 2 diabetes mellitus #Essential hypertension #Obesity #GERD Plan -Dexamethasone, received Tocilizumab. -Oxygen supplementation, wean as tolerated. -Essential home meds, holding Metformin, Hydrochlorothiazide. -Insulin Degludec and SSI-med. 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
[2021-04-10] MEDS: INSULIN DEGLUDEC 100 UNIT/ML SC SCH (21:55)
[2021-04-10] MEDS: INSULIN SC SCH (21:55)
[2021-04-11] MEDS: 0.9 % SODIUM CHLORIDE 10 ML SYRINGE IV SCH ×3 (06:10→19:15)
[2021-04-11] MEDS: INSULIN LISPRO 1 UNIT/0.01 ML UNIT SQ SCH ×4 (08:18→21:26)
[2021-04-11] MEDS: LISINOPRIL 20 MG TABLET PO SCH (09:40)
[2021-04-11] MEDS: OMEPRAZOLE 20 MG CAPSULE PO SCH ×2 (09:40→21:25)
[2021-04-11] MEDS: GABAPENTIN 100 MG CAPSULE PO SCH ×3 (09:40→21:27)
[2021-04-11] MEDS: DOCUSATE SODIUM 100 MG CAPSULE PO SCH ×2 (09:40→21:25)
[2021-04-11] MEDS: DEXAMETHASONE 4 MG TABLET PO SCH (09:40)
[2021-04-11] MEDS ORDERED: FLU VACC QS2021-22(6MOS UP)/PF 60 MCG/0.5 ML SYRINGE IM ONE (10:00)
[2021-04-11] MEDS ORDERED: PNEUMOCOCCAL 23-VAL P-SAC VAC 0.5 ML SYRINGE IM ONE (10:15)
--- NOTE | 2021-04-11 10:40 | XRay Report ---
HISTORY: [Positive, short of breath and diaphoresis FINDINGS: There are moderately severe diffuse infiltrates throughout both lungs. These have become worse since 04/08/2021 and 04/07/2021. Lung volumes are normal. No pneumothorax or pleural effusion are present. The heart size is normal. IMPRESSION: Slowly but progressively worsening bilateral pneumonia Interpreted and Authenticated by: Willie Bowden 04/11/21
[2021-04-11] MEDS: Fluticasone-Umeclidin-Vilanter [Trelegy Ellipta] Inhaler INH SCH (10:47)
--- NOTE | 2021-04-11 14:16 | Internal Med Progress Note ---
SUBJECTIVE Subjective Patient information: Note initiated : 04/11/21 at 2:14 pm Service Date, if different from initiated Date: [] Patient: Rayray Dominguez a 70 y/o M admitted on 04/04/21 for COVID, SOB. Chief Complaint: [] Interval history: History of present illness: Mr. Dominguez is a 70 year old M history of COPD, type 2 diabetes mellitus, essential hypertension's, presenting with 11-day history of shortness of breath, productive cough, fever and chills, general body weakness, general body aches. He is vaccinated against Covid pneumonia with the [employer]eb [employer]eb vaccine. He was in his usual state of health until 11 days ago when he had acute onset of shortness of breath, productive cough, fever and chills, general body weakness, and general body aches. He presented to our ED on April 01, 2021 and was being discharged home with dexamethasone but without oxygen therapy. He returned to our ED today due to worsening of his symptoms. His oxygen saturations were was down to the 60s on room air with rest of the vital signs within normal limits. Labs significant for lack of leukocytosis with WBC 8.6. D-dimer mildly elevated to 0.89. Serum lactic acid 1.4. Serum potassium 3.2. Procalcitonin mildly elevated to 0.31. Chest x-ray showing bilateral patchy infiltrates typical for Covid pneumonia. CT angiogram of the chest negative for any pulmonary embolism. 04/05: Afebrile overnight. Did not tolerate proning. Between BiPAP 12/8cmH2O FiO2 50% and high flow oxygen 60L/min FiO2 100%. Blood culture no growth to date. c/o SOB, improves relative to yesterday. c/o productive cough with clear sputum. c/o chest tightness. c/o fever and chills. Denies anxiety. So-so appetite. Denies general body weakness. 04/06: Afebrile overnight. Did not tolerate proning. Between on high flow oxygen 55L/min FiO2 90%. Blood culture no growth to date. c/o SOB, improves relative to yesterday. c/o productive cough with clear sputum. c/o chest tightness. Denies fever and chills. Denies anxiety. Good appetite. Denies general body weakness. 04/07: Afebrile overnight. Did not tolerate proning. Between on high flow oxygen 60L/min FiO2 100%. Blood culture no growth to date. c/o SOB. c/o productive cough with clear sputum. c/o respiratory wheezing. c/o chest tightness. Denies fever and chills. Denies anxiety. Good appetite. Denies general body weakness. 04/08: Afebrile overnight. Tolerated proning last night. Between BiPAP 12/8 FiO2 50-60% and high flow oxygen 35L/min FiO2 70%. Blood culture no growth to date. s/o Tocilizumab on 04/07. c/o SOB. c/o productive cough with clear sputum. Denies respiratory wheezing. c/o chest tightness. Denies fever and chills. Denies anxiety. Good appetite. Denies general body weakness. 04/09: Improving oxygen requirements, no major events overnight. 04/10: Transfer to med/surg, holding hydrochlorothiazide for low BP-asymptomatic, increased SSI to medium. 04/11: The patient aspirated followed by a higher oxygen requirement, transitioned to HFNC. Chest xray showed interval worsening of bilateral pneumonia, afebrile. Physical exam Head: Atraumatic, normal inspection. Eyes: normal appearance, no scleral icterus. Neck: full ROM Respiratory: tachypnea Cardiovascular: normal rate and rhythm, S1, S2. GI/Abdominal: soft, nontender, no guarding. Extremities: full range of motion, nontender. Neurological: CN II-XII intact, intact motor, intact sensation. Psychiatric: normal mood. Skin: warm, normal color Constitutional Vitals: Vital Signs Temp Pulse Resp BP Pulse Ox 97.4 F 81 15 123/73 98 04/11/21 10:02 04/11/21 12:41 04/11/21 12:41 04/11/21 12:02 04/11/21 12:41 Period Temp Pulse Resp BP Sys/Amin Pulse Ox Last 24 Hr 96.4 F-97.8 F 58-87 15-25 80-136/38-99 91-100 Intake and Output 04/11/21 04/11/21 04/11/21 05:59 13:59 21:59 Intake Total 240 240 Output Total 125 450 Balance 115 -210 Intake & Output: Intake & Output 04/11/21 04/11/2121 05:59 13:59 21:59 Intake Total 240 240 Output Total 125 450 Balance 115 -210 Intake: Oral 240 240 Output: Void Amount 125 450 Other: Meal Breakfast Percent of Meal Consumed 100% Urine Appearance Clear Clear Urine Color Dark Yellow Dark Yellow Urine Odor Normal Normal OBJ DATA Labs CBC & Chem 7: 04/09/21 05:37 04/09/21 05:37 Labs: Abnormal Lab Results 04/09/21 04/09/21 05:37 05:37 Plt Count 552 H Lymph % (Auto) 11.7 L Lymph # (Auto) 1.05 L Glucose 113 H C-Reactive Protein 6.10 H Albumin 2.8 L Albumin/Globulin Ratio 0.8 L Meds: Medications Acetaminophen (Acetaminophen 325 Mg Tablet) 650 mg PO Q6HP PRN; Protocol PRN Reason: Per Pain Protocol/Fever > 101 Last Admin: 04/10/21 21:42 Dose: 650 mg Documented by: Albuterol/Ipratropium (Ipratropium/Albuterol 3 Ml Ampul.Neb) 3 ml NEB Q4HRT PRN PRN Reason: Wheezing Dexamethasone (Dexamethasone 4 Mg Tablet) 6 mg PO DAILY [facility] Last Admin: 04/11/21 09:40 Dose: 6 mg Documented by: Dextrose (Dextrose 50% 50 Ml Vial) 0 ml IV UD PRN PRN Reason: Hypoglycemia Diagnostic Test (Pha) (Accu-Chek 1 Each Strip) 1 each FS ACHS [facility] Last Admin: 04/11/21 13:09 Dose: 1 each Documented by: Docusate Sodium (Docusate Sodium 100 Mg Capsule) 100 mg PO BID [facility] Last Admin: 04/11/21 09:40 Dose: 100 mg Documented by: Enoxaparin Sodium (Enoxaparin 40 Mg/0.4 Ml Syringe) 40 mg SQ HS [facility] Last Admin: 04/10/21 21:44 Dose: 40 mg Documented by: Gabapentin (Gabapentin 100 Mg Capsule) 100 mg PO TID [facility] Last Admin: 04/11/21 09:40 Dose: 100 mg Documented by: Glucose (Dextrose 31 Gm Oral.Susp) 15 gm PO PRN PRN PRN Reason: Hypoglycemia Guaifenesin (Guaifenesin/Dextromethorphan Oral Rosa) 10 ml PO Q4HP PRN PRN Reason: Cough Potassium Chloride 20 meq/ (Dextrose) 260 mls @ 130 mls/hr IV UD PRN PRN Reason: hypokalemia Insulin Human Lispro (Insulin Lispro 1 Unit/0.01 Ml Unit) 0 unit SQ ACHS [facility]; Protocol Last Admin: 04/11/21 13:09 Dose: 4 unit Documented by: Lactulose (Lactulose 20 Gm/30 Ml Oral.Rosa) 10 gm PO DAILYP PRN PRN Reason: Constipation Last Admin: 04/07/21 09:27 Dose: 10 gm Documented by: Lisinopril (Lisinopril 20 Mg Tablet) 20 mg PO DAILY [facility] Last Admin: 04/11/21 09:40 Dose: 20 mg Documented by: Meclizine HCl (Meclizine 25 Mg Tablet) 25 mg PO TIDP PRN PRN Reason: Vertigo Last Admin: 04/07/21 02:19 Dose: 25 mg Documented by: Omeprazole (Omeprazole 20 Mg Capsule) 20 mg PO BID [facility] Last Admin: 04/11/21 09:40 Dose: 20 mg Documented by: Ondansetron HCl (Ondansetron 4 Mg/2 Ml Vial) 4 mg IV Q4HP PRN; Protocol PRN Reason: Nausea And Vomiting Last Admin: 04/07/21 05:32 Dose: 4 mg Documented by: Fluticasone- Umeclidin-Vilanter [ Trelegy Ellipta] Inhaler 1 dose INH QDAY [facility] Last Admin: 04/11/21 10:47 Dose: 1 dose Documented by: Insulin Degludec 100 (Unit/Ml Insulin Pen) 50 dose SC HS [facility] Last Admin: 04/10/21 21:55 Dose: 50 dose Documented by: Senna (Sennosides 1 Tablet) 2 tab PO HSP PRN PRN Reason: Constipation Sodium Chloride (0.9 % Sodium Chloride 10 Ml Syringe) 10 ml IV Q8 [facility] Last Admin: 04/11/21 06:10 Dose: 10 ml Documented by: A/P Narrative A/P Narrative: Assessment: 70 year old male with a history of hypertension, type 2 diabetes mellitus, COPD admitted for severe COVID-19 pneumonia. The patient recovered slowly from COVID-19 pneumonia. Unfortunately the patient aspirated on 04/11 and subsequently required higher oxygen supplementation. #Acute hypoxic respiratory failure #Severe COVID-19 pneumonia #Aspiration pneumonitis vs pneumonia #COPD, stable #Type 2 diabetes mellitus #Essential hypertension #Obesity #GERD Plan -Dexamethasone, received Tocilizumab. -Oxygen supplementation, wean as tolerated. -Check CBC, low threshold for antibiotic. -Essential home meds, holding Metformin, Hydrochlorothiazide. -Insulin Degludec and SSI-med. 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
[2021-04-11 15:31] LABS: Basophils # (Auto) 0.02 K/mcL (0.00-0.30); Basophils % (Auto) 0.2 % (0.0-2.0); Eosinophils # (Auto) 0.16 K/mcL (0.00-0.70); Eosinophils % (Auto) 1.7 % (0.0-7.0); Hematocrit 44.5 % (40.1-51.0); Hemoglobin 14.4 g/dL (13.7-17.5); Lymphocytes # (Auto) 0.79 K/mcL (1.50-4.80); Lymphocytes % (Auto) 8.4 % (15.5-49.0); Mean Cell Volume 88.1 fL (80.0-100.0); Mean Corpuscular HGB Conc 32.4 g/dL (31.0-36.0); Monocytes # (Auto) 0.39 K/mcL (0.10-0.90); Monocytes % (Auto) 4.1 % (1.0-12.0); Neutrophils % (Auto) 85.6 % (38.0-78.0); Platelet Count 546 K/mcL (140-440); RBC 5.05 M/mcL (4.63-6.08); Red Cell Distribution Width 12.7 % (11.5-14.5); WBC 9.4 K/mcL (4.5-11.0)
[2021-04-11] MEDS: ACETAMINOPHEN 325 MG TABLET PO PRN (21:25)
[2021-04-11] MEDS: ENOXAPARIN 40 MG/0.4 ML SYRINGE SQ SCH (21:26)
[2021-04-11] MEDS: INSULIN SC SCH (21:27)
[2021-04-11] MEDS: INSULIN DEGLUDEC 100 UNIT/ML SC SCH (21:27)
[2021-04-12] MEDS: 0.9 % SODIUM CHLORIDE 10 ML SYRINGE IV SCH ×3 (04:30→21:15)
[2021-04-12] MEDS: OMEPRAZOLE 20 MG CAPSULE PO SCH ×2 (07:00→21:13)
[2021-04-12 07:14] LABS: Basophils # (Auto) 0.03 K/mcL (0.00-0.30); Basophils % (Auto) 0.3 % (0.0-2.0); Eosinophils # (Auto) 0.18 K/mcL (0.00-0.70); Eosinophils % (Auto) 1.9 % (0.0-7.0); Hemoglobin 14.6 g/dL (13.7-17.5); Lymphocytes # (Auto) 1.78 K/mcL (1.50-4.80); Lymphocytes % (Auto) 18.6 % (15.5-49.0); Mean Cell Volume 88.4 fL (80.0-100.0); Mean Corpuscular HGB Conc 33.2 g/dL (31.0-36.0); Mean Platelet Volume 9.1 fL (7.4-10.4); Monocytes % (Auto) 8.4 % (1.0-12.0); Neutrophils % (Auto) 70.8 % (38.0-78.0); Platelet Count 563 K/mcL (140-440); RBC 4.98 M/mcL (4.63-6.08); Red Cell Distribution Width 12.8 % (11.5-14.5); WBC 9.6 K/mcL (4.5-11.0)
[2021-04-12] MEDS: INSULIN LISPRO 1 UNIT/0.01 ML UNIT SQ SCH ×4 (07:17→21:12)
[2021-04-12 07:40] LABS: ALT/SGPT 17 U/L (<40); AST/SGOT 13 U/L (<40); Albumin 3.2 gm/dL (3.2-5.2); Albumin/Globulin Ratio 1.1 (1.0-2.3); Alkaline Phosphatase 64 U/L (39-117); Bilirubin,Total 0.6 mg/dL (0.1-1.0); Blood Urea Nitrogen 21 mg/dL (8-23); Calcium 9.2 mg/dL (8.6-10.4); Carbon Dioxide 28 mmol/L (22-30); Chloride 99 mmol/L (96-108); Globulin 2.9 gm/dL (2.2-3.7); Glomerular Filtration Rate 91; Glucose 79 mg/dL (70-105)
[2021-04-12] MEDS: Fluticasone-Umeclidin-Vilanter [Trelegy Ellipta] Inhaler INH SCH (08:17)
[2021-04-12] MEDS: LISINOPRIL 20 MG TABLET PO SCH (08:17)
[2021-04-12] MEDS: GABAPENTIN 100 MG CAPSULE PO SCH ×3 (08:17→21:13)
[2021-04-12] MEDS: DEXAMETHASONE 4 MG TABLET PO SCH (08:17)
[2021-04-12] MEDS: DOCUSATE SODIUM 100 MG CAPSULE PO SCH ×2 (08:17→21:13)
--- NOTE | 2021-04-12 12:50 | Internal Med Progress Note ---
SUBJECTIVE Subjective Patient information: Note initiated : 04/12/21 at 12:48 pm Service Date, if different from initiated Date: [] Patient: Rayray Dominguez a 70 y/o M admitted on 04/04/21 for COVID, SOB. Chief Complaint: [] Interval history: History of present illness: Mr. Dominguez is a 70 year old M history of COPD, type 2 diabetes mellitus, essential hypertension's, presenting with 11-day history of shortness of breath, productive cough, fever and chills, general body weakness, general body aches. He is vaccinated against Covid pneumonia with the [employer]eb [employer] Jeb vaccine. He was in his usual state of health until 11 days ago when he had acute onset of shortness of breath, productive cough, fever and chills, general body weakness, and general body aches. He presented to our ED on April 01, 2021 and was being discharged home with dexamethasone but without oxygen therapy. He returned to our ED today due to worsening of his symptoms. His oxygen saturations were was down to the 60s on room air with rest of the vital signs within normal limits. Labs significant for lack of leukocytosis with WBC 8.6. D-dimer mildly elevated to 0.89. Serum lactic acid 1.4. Serum potassium 3.2. Procalcitonin mildly elevated to 0.31. Chest x-ray showing bilateral patchy infiltrates typical for Covid pneumonia. CT angiogram of the chest negative for any pulmonary embolism. 04/05: Afebrile overnight. Did not tolerate proning. Between BiPAP 12/8cmH2O FiO2 50% and high flow oxygen 60L/min FiO2 100%. Blood culture no growth to date. c/o SOB, improves relative to yesterday. c/o productive cough with clear sputum. c/o chest tightness. c/o fever and chills. Denies anxiety. So-so appetite. Denies general body weakness. 04/06: Afebrile overnight. Did not tolerate proning. Between on high flow oxygen 55L/min FiO2 90%. Blood culture no growth to date. c/o SOB, improves relative to yesterday. c/o productive cough with clear sputum. c/o chest tightness. Denies fever and chills. Denies anxiety. Good appetite. Denies general body weakness. 04/07: Afebrile overnight. Did not tolerate proning. Between on high flow oxygen 60L/min FiO2 100%. Blood culture no growth to date. c/o SOB. c/o productive cough with clear sputum. c/o respiratory wheezing. c/o chest tightness. Denies fever and chills. Denies anxiety. Good appetite. Denies general body weakness. 04/08: Afebrile overnight. Tolerated proning last night. Between BiPAP 12/8 FiO2 50-60% and high flow oxygen 35L/min FiO2 70%. Blood culture no growth to date. s/o Tocilizumab on 04/07. c/o SOB. c/o productive cough with clear sputum. Denies respiratory wheezing. c/o chest tightness. Denies fever and chills. Denies anxiety. Good appetite. Denies general body weakness. 04/09: Improving oxygen requirements, no major events overnight. 04/10: Transfer to med/surg, holding hydrochlorothiazide for low BP-asymptomatic, increased SSI to medium. 04/11: The patient aspirated followed by a higher oxygen requirement, transitioned to HFNC. Chest xray showed interval worsening of bilateral pneumonia, afebrile. 04/12: No major events overnight. Stable respiratory status since yesterday, on 35 L/min, afebrile, no leukocytosis. Good appetite, feels much better than he did yesterday. Physical exam Head: Atraumatic, normal inspection. Eyes: normal appearance, no scleral icterus. Neck: full ROM Respiratory: no respiratory distress Cardiovascular: normal rate and rhythm, S1, S2. GI/Abdominal: soft, nontender, no guarding. Extremities: full range of motion, nontender. Neurological: CN II-XII intact, intact motor, intact sensation. Psychiatric: normal mood. Skin: warm, normal color Constitutional Vitals: Vital Signs Temp Pulse Resp BP Pulse Ox 97.4 F 63 23 H 104/59 95 04/12/21 08:04 04/12/21 12:02 04/12/21 12:02 04/12/21 12:02 04/12/21 12:02 Period Temp Pulse Resp BP Sys/Amin Pulse Ox Last 24 Hr 97.0 F-98.6 F 52-78 11-25 93-119/53-71 90-100 Intake and Output 04/11/21 04/12/21 04/12/21 21:59 05:59 13:59 Intake Total 600 480 360 Output Total 475 750 500 Balance 125 -270 -140 Weight 98.883 kg Intake & Output: Intake & Output 04/11/21 04/12/21 04/12/21 21:59 05:59 13:59 Intake Total 600 480 360 Output Total 475 750 500 Balance 125 -270 -140 Weight 98.883 kg Intake: Oral 600 480 360 Output: Void Amount 475 750 500 Other: Meal Dinner Breakfast Percent of Meal Consumed 100% 100% Urine Appearance Clear Clear Clear Urine Color Dark Yellow Bright Yellow Dark Yellow Urine Odor Normal Normal Normal OBJ DATA Labs CBC & Chem 7: 04/12/21 04:59 04/12/21 04:59 Labs: Abnormal Lab Results 04/12/21 04/11/21 04:59 14:39 Plt Count 563 H 546 H Neut % (Auto) 85.6 H Lymph % (Auto) 8.4 L Lymph # (Auto) 0.79 L Absolute Neutrophils 8.06 H Meds: Medications Acetaminophen (Acetaminophen 325 Mg Tablet) 650 mg PO Q6HP PRN; Protocol PRN Reason: Per Pain Protocol/Fever > 101 Last Admin: 04/11/21 21:25 Dose: 650 mg Documented by: Albuterol/Ipratropium (Ipratropium/Albuterol 3 Ml Ampul.Neb) 3 ml NEB Q4HRT PRN PRN Reason: Wheezing Dexamethasone (Dexamethasone 4 Mg Tablet) 6 mg PO DAILY [facility] Last Admin: 04/12/21 08:17 Dose: 6 mg Documented by: Dextrose (Dextrose 50% 50 Ml Vial) 0 ml IV UD PRN PRN Reason: Hypoglycemia Diagnostic Test (Pha) (Accu-Chek 1 Each Strip) 1 each FS ACHS [facility] Last Admin: 04/12/21 12:29 Dose: 1 each Documented by: Docusate Sodium (Docusate Sodium 100 Mg Capsule) 100 mg PO BID [facility] Last Admin: 04/12/21 08:17 Dose: 100 mg Documented by: Enoxaparin Sodium (Enoxaparin 40 Mg/0.4 Ml Syringe) 40 mg SQ HS [facility] Last Admin: 04/11/21 21:26 Dose: 40 mg Documented by: Gabapentin (Gabapentin 100 Mg Capsule) 100 mg PO TID [facility] Last Admin: 04/12/21 08:17 Dose: 100 mg Documented by: Glucose (Dextrose 31 Gm Oral.Susp) 15 gm PO PRN PRN PRN Reason: Hypoglycemia Guaifenesin (Guaifenesin/Dextromethorphan Oral Rosa) 10 ml PO Q4HP PRN PRN Reason: Cough Potassium Chloride 20 meq/ (Dextrose) 260 mls @ 130 mls/hr IV UD PRN PRN Reason: hypokalemia Insulin Human Lispro (Insulin Lispro 1 Unit/0.01 Ml Unit) 0 unit SQ ACHS [facility]; Protocol Last Admin: 04/12/21 12:29 Dose: 2 unit Documented by: Lactulose (Lactulose 20 Gm/30 Ml Oral.Rosa) 10 gm PO DAILYP PRN PRN Reason: Constipation Last Admin: 04/07/21 09:27 Dose: 10 gm Documented by: Lisinopril (Lisinopril 20 Mg Tablet) 20 mg PO DAILY [facility] Last Admin: 04/12/21 08:17 Dose: 20 mg Documented by: Meclizine HCl (Meclizine 25 Mg Tablet) 25 mg PO TIDP PRN PRN Reason: Vertigo Last Admin: 04/07/21 02:19 Dose: 25 mg Documented by: Omeprazole (Omeprazole 20 Mg Capsule) 20 mg PO BID [facility] Last Admin: 04/12/21 07:00 Dose: 20 mg Documented by: Ondansetron HCl (Ondansetron 4 Mg/2 Ml Vial) 4 mg IV Q4HP PRN; Protocol PRN Reason: Nausea And Vomiting Last Admin: 04/07/21 05:32 Dose: 4 mg Documented by: Fluticasone- Umeclidin-Vilanter [ Trelegy Ellipta] Inhaler 1 dose INH QDAY [facility] Last Admin: 04/12/21 08:17 Dose: 1 dose Documented by: Insulin Degludec 100 (Unit/Ml Insulin Pen) 50 dose SC HS [facility] Last Admin: 04/11/21 21:27 Dose: 50 dose Documented by: Pneumococcal Polyvalent Vaccine (Pneumococcal 23-Xiomy P-Sac Vac 0.5 Ml Syringe) 0.5 ml IM .ONCE ONE Stop: 04/13/21 10:01 Senna (Sennosides 1 Tablet) 2 tab PO HSP PRN PRN Reason: Constipation Sodium Chloride (0.9 % Sodium Chloride 10 Ml Syringe) 10 ml IV Q8 [facility] Last Admin: 04/12/21 04:30 Dose: 10 ml Documented by: A/P Narrative A/P Narrative: Assessment: 70 year old male with a history of hypertension, type 2 diabetes mellitus, COPD admitted for severe COVID-19 pneumonia. The patient recovered slowly from COVID-19 pneumonia. Unfortunately the patient aspirated on 04/11 and subsequently required higher oxygen supplementation. #Acute hypoxic respiratory failure #Severe COVID-19 pneumonia #Aspiration pneumonitis, stable #COPD, stable #Type 2 diabetes mellitus #Essential hypertension #Obesity #GERD Plan -Dexamethasone, received Tocilizumab. -Oxygen supplementation, wean as tolerated. -Monitor respiratory status. -Essential home meds, holding Metformin, Hydrochlorothiazide. -Insulin Degludec and SSI-med. 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
[2021-04-12] MEDS: ACETAMINOPHEN 325 MG TABLET PO PRN (21:13)
[2021-04-12] MEDS: ENOXAPARIN 40 MG/0.4 ML SYRINGE SQ SCH (21:13)
[2021-04-12] MEDS: INSULIN SC SCH (21:14)
[2021-04-12] MEDS: INSULIN DEGLUDEC 100 UNIT/ML SC SCH (21:14)
[2021-04-13] MEDS: 0.9 % SODIUM CHLORIDE 10 ML SYRINGE IV SCH (05:10)
[2021-04-13] MEDS: INSULIN LISPRO 1 UNIT/0.01 ML UNIT SQ SCH ×2 (08:22→12:20)
[2021-04-13] MEDS: LISINOPRIL 20 MG TABLET PO SCH (09:00)
[2021-04-13] MEDS: DEXAMETHASONE 4 MG TABLET PO SCH (09:00)
[2021-04-13] MEDS: Fluticasone-Umeclidin-Vilanter [Trelegy Ellipta] Inhaler INH SCH (09:00)
[2021-04-13] MEDS: GABAPENTIN 100 MG CAPSULE PO SCH (09:00)
[2021-04-13] MEDS: OMEPRAZOLE 20 MG CAPSULE PO SCH (09:00)
[2021-04-13] MEDS: DOCUSATE SODIUM 100 MG CAPSULE PO SCH (09:00)
--- NOTE | 2021-04-13 09:30 | Discharge Summary ---
Discharge Provider Provider Patient information: Note initiated : 04/13/21 at 9:29 am Service Date, if different from initiated Date: [] Patient: Rayray Dominguez 70 y/o M admitted on 04/04/21 for COVID, SOB. Chief Complaint: [] Date of admission: 04/04/21 14:12 Discharge date: 04/13/21 Primary care physician: Ny Yin Consults: 04/04/21 Consult to Physician [CONS] Stat Comment: Consulting Provider: Vincent Esteban Reason For Exam: Physician to Consult Discharge Meds Discharge Medications Home Medications omeprazole 20 mg capsule,delayed release 20 mg PO BID 02/14/17 [History Confirmed 04/04/21 Last Taken 02/02/19 08:00] metformin 500 mg tablet 500 mg PO BID 03/29/17 [History Confirmed 04/04/21 Last Taken 02/02/19 08:00] gabapentin 100 mg capsule 100 mg PO TID cap 09/27/17 [History Confirmed 04/04/21 Last Taken 02/02/19 08:00] insulin degludec 60 unit SQ HS 02/02/19 [History Confirmed 04/05/21 Last Taken Unknown] albuterol sulfate 90 mcg/actuation aerosol inhaler 2 puff INHALATION Q6H PRN #18 g 12/25/20 [Rx Confirmed 04/05/21 Last Taken Unknown] Trelegy Ellipta 100 mcg-62.5 mcg-25 mcg powder for inhalation 1 inh INHALATION QDAY #60 ea NS 01/30/21 [Rx Confirmed 04/04/21 Last Taken Unknown] lisinopril-hydrochlorothiazide 1 tab PO QDAY 04/04/21 [History Confirmed 04/04/21 Last Taken Unknown] dexamethasone 6 mg PO QDAY #1 tab 04/13/21 [Rx Last Taken Unknown] COURSE Hospital Course Hospital course: Mr. Dominguez is a 70 year old M history of COPD, type 2 diabetes mellitus, essential hypertension's, presenting with 11-day history of shortness of breath, productive cough, fever and chills, general body weakness, general body aches. He is vaccinated against Covid pneumonia with the [employer] vaccine. He was in his usual state of health until 11 days ago when he had acute onset of shortness of breath, productive cough, fever and chills, general body weakness, and general body aches. He presented to our ED on April 01, 2021 and was being discharged home with dexamethasone but without oxygen therapy. He returned to our ED today due to worsening of his symptoms. His oxygen saturations were was down to the 60s on room air with rest of the vital signs within normal limits. Labs significant for lack of leukocytosis with WBC 8.6. D-dimer mildly elevated to 0.89. Serum lactic acid 1.4. Serum potassium 3.2. Procalcitonin mildly elevated to 0.31. Chest x-ray showing bilateral patchy infiltrates typical for Covid pneumonia. CT angiogram of the chest negative for any pulmonary embolism. 04/05: Afebrile overnight. Did not tolerate proning. Between BiPAP 12/8cmH2O FiO2 50% and high flow oxygen 60L/min FiO2 100%. Blood culture no growth to date. c/o SOB, improves relative to yesterday. c/o productive cough with clear sputum. c/o chest tightness. c/o fever and chills. Denies anxiety. So-so appetite. Denies general body weakness. 04/06: Afebrile overnight. Did not tolerate proning. Between on high flow oxygen 55L/min FiO2 90%. Blood culture no growth to date. c/o SOB, improves relative to yesterday. c/o productive cough with clear sputum. c/o chest tightness. Denies fever and chills. Denies anxiety. Good appetite. Denies general body weakness. 04/07: Afebrile overnight. Did not tolerate proning. Between on high flow oxygen 60L/min FiO2 100%. Blood culture no growth to date. c/o SOB. c/o productive cough with clear sputum. c/o respiratory wheezing. c/o chest tightness. Denies fever and chills. Denies anxiety. Good appetite. Denies general body weakness. 04/08: Afebrile overnight. Tolerated proning last night. Between BiPAP 12/8 FiO2 50-60% and high flow oxygen 35L/min FiO2 70%. Blood culture no growth to date. s/o Tocilizumab on 04/07. c/o SOB. c/o productive cough with clear sputum. Denies respiratory wheezing. c/o chest tightness. Denies fever and chills. Denies anxiety. Good appetite. Denies general body weakness. 04/09: Improving oxygen requirements, no major events overnight. 04/10: Transfer to med/surg, holding hydrochlorothiazide for low BP-asymptomatic, increased SSI to medium. 04/11: The patient aspirated followed by a higher oxygen requirement, transitioned to HFNC. Chest xray showed interval worsening of bilateral pneumonia, afebrile. 04/12: No major events overnight. Stable respiratory status since yesterday, on 35 L/min, afebrile, no leukocytosis. Good appetite, feels much better than he did yesterday. Was able to wean down to 4 L/min by the evening. 04/13: Discharged to home, home oxygen evaluation prior to discharge, requires 2 L/min nasal canula oxygen. Physical exam Head: Atraumatic, normal inspection. Eyes: normal appearance, no scleral icterus. Neck: full ROM Respiratory: no respiratory distress Cardiovascular: normal rate and rhythm, S1, S2. GI/Abdominal: soft, nontender, no guarding. Extremities: full range of motion, nontender. Neurological: CN II-XII intact, intact motor, intact sensation. Psychiatric: normal mood. Skin: warm, normal color Discharge diagnosis: Severe COVID-19 pneumonia Time Spent with Patient Time attestation: Total time spent providing and/or coordinating discharge services: EXAM Constitutional Vitals: Temp Pulse Resp BP Pulse Ox 96.2 F L 55 L 21 126/72 91 04/13/21 08:01 04/13/21 08:08 04/13/21 08:08 04/13/21 08:01 04/13/21 08:08 Discharge Plan Patient/Caregiver Discharge Instructions Activity: increase activity as tolerated Diet: Consistent Carbohydrate Instructions: Dexamethasone (By mouth), Using Oxygen at Home (GEN), COVID-19 (Coronavirus Disease 2019)(GEN) Activity Restrictions/Additional Instructions: Increase activity as tolerated, continue to follow a consistent carbohydrate diet as suggested. Your home oxygen is supplied by [employer] This discharge packet is provided to you to help keep you informed about your care. We want to ensure you get everything you need when you go home. You will also be receiving a call from us in a few days to follow up with you and see how you are doing since your discharge. This gives us a chance to listen to any concerns you maybe experiencing since you were discharged or any additional needs you may have, as well as providing us feedback on your care experience. We strive to always provide excellent care and thank you for your feedback and for choosing [facility]. Prescriptions: New dexamethasone 6 mg tablet 6 mg PO QDAY Qty: 1 RF: 0 Continued albuterol sulfate [ProAir HFA] 90 mcg/actuation HFA aerosol inhaler 2 puff INHALATION Q6H PRN (Reason: shortness of breath) Qty: 18 RF: 6 Trelegy Ellipta 100-62.5-25 mcg blister with device 1 inh inhalation QDAY Qty: 60 RF: 6 omeprazole 20 mg capsule,delayed release(DR/EC) 20 mg PO BID RF: 0 metformin 500 mg tablet 500 mg PO BID RF: 0 gabapentin 100 mg capsule 100 mg PO TID RF: 0 insulin degludec 100 UNIT/ML insulin pen 60 unit SQ HS RF: 0 lisinopril-hydrochlorothiazide 20-12.5 mg Tablet 1 tab PO QDAY RF: 0 Follow Up Plan Follow up with: Ny Yin ARNP [Primary Care Provider] - 04/21/21 9:45 am Patient Disposition: Home, Self-Care Overall status at discharge: patient is progressing back to baseline Discharge Orders: Discharge Order (Routine); Ordered 04/13/21 Ordered By: Tino FARRELL VTE Deep Vein Thrombosis/Pulmonary Embolism Present on Admission: No
[2021-04-13] MEDS ORDERED: PNEUMOCOCCAL 23-VAL P-SAC VAC 0.5 ML SYRINGE IM ONE (10:00)
[2021-04-13] MEDS ORDERED: FLU VACC QS2021-22(6MOS UP)/PF 60 MCG/0.5 ML SYRINGE IM ONE (10:00)
== END 2021-04-13 13:43 | disposition home or self-care (01) | DRG 177 ==
LOC: ED 07:20 → ICU 14:12
PROVIDERS: ADMIT Internal Medicine; ATTEND Internal Medicine